=== PATIENT | female | born 1945 ===

== ENCOUNTER 2022-06-04 08:11 | Inpatient (IN) | payer OTHER, MEDICAID, SELFPAY ==
[2022-06-04] VITALS (32 sets, daily range): BP systolic 121–158; BP diastolic 74–99; PULSE 60–106; RESP 16–30; TEMP 36.5–37.1; O2SAT 88–99
--- NOTE | ~2022-06-04 | XR_ITS ---
EXAMINATION: XR chest 2V DATE: 06/04/2022 10:13 INDICATION: Transient alteration of awareness TECHNIQUE: AP and lateral views of the chest are obtained. COMPARISON: None available FINDINGS: The lungs are free of acute opacities. No pleural effusion or pneumothorax. The cardiomedia stinal silhouette is normal. There is moderate thoracic spondylosis. Cranial migration of the left hu meral head with respect to the glenoid likely reflects chronic rotator cuff tear. IMPRESSION: 1. No acute cardiopulmonary abnormality. Reviewed, dictated and finalized at location A.
--- NOTE | ~2022-06-04 | CT_ITS ---
EXAMINATION: CT brain wo con INDICATION: Headache COMPARISON: None TECHNIQUE: Standard unenhanced head CT. The dose-length product (DLP) was 983.67 mGy-cm. The mA was a djusted according to patient size. Iterative reconstruction technique was employed. FINDINGS: There is no acute intraparenchymal hemorrhage. No evidence of mass lesion. No evidence of a cute infarction. There is mild periventricular and subcortical hypodensity probably related to small vessel ischemic disease. There is mild prominence of the sulci and ventricles related to cerebral atr ophy. Intracranial calcified cerebral atherosclerosis is noted. There are no extra-axial collections. There is no mass effect or midline shift. Changes in the globes are likely from ocular lens surgery. The visualized sinuses and mastoid air cells are well aerated. IMPRESSION: 1. No acute intracranial abnormality. 2. Age related findings. Reviewed, dictated and finalized at location A.
[2022-06-04] MEDS: SODIUM CHLORIDE 0.9% IV 1,000 ML 999 ML IV CONT (09:14)
[2022-06-04 09:26] LABS: Basophils Percent Auto 0.5 % (0.2-1.2); Eosinophils Absolute Auto 0.1 K/mm3 (0-0.3); Eosinophils Percent Auto 1.6 % (0-4.4); Hematocrit 33.5 % (37.0-47.0); Hemoglobin 11.2 g/dL (12.0-15.0); Immature Granulocyte Absolute 0.05 K/mm3 (0.00-0.031); Immature Granulocyte Percent A 0.6 % (0-0.5); Lymphocytes Absolute Auto 1.13 K/mm3 (0.9-3.2); Lymphocytes Percent Auto 13.1 % (18.3-44.2); Mean Corpuscular HGB Conc 33.4 g/dl (32-36); Mean Corpuscular Hemoglobin 26.6 pg (26-34); Mean Corpuscular Volume 79.6 fl (80-100); Mean Platelet Volume 9.2 fl (7.4-10.4); Monocytes Absolute Auto 0.7 K/mm3 (0.1-0.6); Monocytes Percent Auto 8.6 % (2.6-8.5); Neutrophils Absolute Auto 6.5 K/mm3 (1.3-6.7); Neutrophils Percent Auto 75.6 % (45.5-73.1); Platelet Count Result 287 k/mm3 (150-375); Red Blood Count 4.21 M/mm3 (4.2-5.4); Red Cell Distribution Width 13.3 % (11.5-14.5); White Blood Count 8.6 K/mm3 (4.5-10.0)
--- NOTE | 2022-06-04 09:37 | ED.GENADULT ---
HPI - General Adult General Chief complaint: Altered Mental Status Stated complaint: AMS History of Present Illness HPI narrative: Patient is a 76-year-old female who presents ER with altered mental status. Patient is typically alert and oriented x4 but she has been oriented x1 for the last 18 hours. Patient is unable to provide history no additional information was given by snf. Related Data Allergies Allergy/AdvReac Type Severity Reaction Status Date / Time penicillin V Allergy Unknown Unknown Verified 06/04/22 15:06 Review of Systems Review of Systems: ROS unobtainable: Yes unobtainable due to medical condition [facility] Past Medical History Medical History (Updated 06/04/22 @ 17:03 by Duane Ortega MD) Anxiety Atherosclerosis of aorta Barretts esophagus CKD (chronic kidney disease) Depression GERD (gastroesophageal reflux disease) Hyperlipidemia Hypo-osmolality and hyponatremia Migraines Pre-diabetes Surgical History Surgical History History of esophagogastroduodenoscopy (EGD) Family History Family History Other Diabetes mellitus Family history of arthritis Family history of cardiovascular disease Hypertension Social History Social History (Updated 06/04/22 @ 14:51 by Katerine Wallace PA-C) Social History: Lives at [facility] Nursing Code: DNR POA: Charlie (brother), Chandrika (sister) PCP: Dr. Radha Guaman Smoking status: Former smoker Additional smoking assessment comments: Unknown amount or duration of smoking, quit 40-50 years ago Substance use: never Substance use type: does not use Spiritual care concerns: No Exam Narrative: GENERAL: Chronically ill-appearing, well-nourished, and in no acute distress. HEAD: Normocephalic, atraumatic. EYES: PERRL and EOMI. ENT: Mucous membranes moist. CHEST: Clear to auscultation. No respiratory distress. HEART: Regular rate and rhythm. Normal peripheral pulses. ABDOMEN: Soft, nontender, nondistended. EXTREMITIES: Normal range of motion. No edema. SKIN: Warm, dry, no rash. NEURO: Alert and oriented x1. PSYCH: Normal mood and affect. Course Course Emergency Course: Family at bedside. Informed of results. Pt recently admitted in [place] for Na of 127. The thought it was an issue with gabapentin. MRI of brain there negative. Will admit to hospitalist. Vital Signs Vital signs: Vital Signs Temperature 97.8 F 06/04/22 08:05 Pulse Rate 80 06/04/22 08:05 Respiratory Rate 16 06/04/22 08:05 Blood Pressure 127/98 H 06/04/22 08:05 Pulse Oximetry 97 06/04/22 08:05 Oxygen Delivery Room Air 06/04/22 08:05 Temperature 98.1 F 06/04/22 14:00 Pulse Rate 104 H 06/04/22 14:00 Respiratory Rate 18 06/04/22 14:00 Blood Pressure 158/92 H 06/04/22 14:00 Pulse Oximetry 98 06/04/22 14:00 Oxygen Delivery Room Air 06/04/22 08:05 Medical Decision Making Vital Signs Vital Signs: Vital Signs Temperature 97.8 F 06/04/22 08:05 Pulse Rate 80 06/04/22 08:05 Respiratory Rate 16 06/04/22 08:05 Blood Pressure 127/98 H 06/04/22 08:05 Pulse Oximetry 97 06/04/22 08:05 Oxygen Delivery Room Air 06/04/22 08:05 Temperature 98.1 F 06/04/22 14:00 Pulse Rate 104 H 06/04/22 14:00 Respiratory Rate 18 06/04/22 14:00 Blood Pressure 158/92 H 06/04/22 14:00 Pulse Oximetry 98 06/04/22 14:00 Oxygen Delivery Room Air 06/04/22 08:05 Lab Data Result diagrams: 06/04/22 09:06/04/22 12:52 Labs: Lab Results 06/04/22 06/04/22 06/04/22 Range/Units 09:22 09:22 09:22 WBC 8.6 (4.5-10.0) K/mm3 RBC 4.21 (4.2-5.4) M/mm3 Hgb 11.2 L (12.0-15.0) g/dL Hct 33.5 L (37.0-47.0) % MCV 79.6 L (80-100) fl MCH 26.6 (26-34) pg MCHC 33.4 (32-36) g/dl RDW 13.3 (11.5-14.5) % Plt Count 287 (150-3
[2022-06-04 09:39] LABS: Lactic Acid Reflex 1.1 mmol/L (0.7-2.0)
[2022-06-04 09:44] LABS: Alanine Aminotransferase 34 U/L (6-35); Albumin Level 3.5 g/dL (3.5-5.1); Alkaline Phosphatase 205 U/L (38-126); Anion Gap 6 mmol/L (8-16); Aspartate Amino Transferase 30 U/L (14-36); Bilirubin,Total 0.9 mg/dL (0.2-1.3); Blood Urea Nitrogen 8 mg/dL (7-17); Calcium 8.6 mg/dL (8.4-10.2); Carbon Dioxide 29 mmol/L (22-30); Chloride 81 mmol/L (98-107); Estimated CRCL calculation 80 ml/min; Estimated Glomerular Filt Rate > 60; Glucose 150 mg/dL (65-110); Potassium 4.4 mmol/L (3.4-5.0); Sodium 116 mmol/L (137-145)
[2022-06-04 10:19] LABS: Appearance Urine Cloudy (Clear); Bilirubin Urine Negative (Negative); Blood Urine Negative (Negative); Color Urine Yellow (Yellow); Glucose Urine UA Negative (Negative); Ketones Urine 1+ mg/dL (Negative); Leukocyte Esterase Ur 1+ LEU/UL (Negative); Nitrate Urine Negative (Negative); Protein Urine Negative (Negative)
[2022-06-04 10:26] LABS: Bacteria Urine Trace /hpf; Mucus Urine Rare /lpf; RBC Urine 0-2 /hpf (0-2); Squamous Epithelial Cell Urine Rare /hpf (Few); WBC Urine 31-50 /hpf
[2022-06-04 10:28] LABS: Add Urine Microscopic? YES
--- NOTE | 2022-06-04 11:45 | PC.NURSE ---
1100 Assumed pt care from MEETA Quintero
[2022-06-04] MEDS: LORazepam INJ (*CRX) 2 MG/ML VIAL 1 MG IV PUSH (11:53)
--- NOTE | 2022-06-04 13:25 | ADMGEN ---
This patient, Bere Roman, was admitted to Medical Room 348-01. Patient/family oriented to hospital policies and general routines including ID bracelet, bed and alarms, visiting hours, pain management, procedures, bathroom and other care routines, personal items, smoking policy, room service/diet, and visiting hours. Information on how to activate the Rapid Response Team has been discussed. Patient/Family are encouraged to report perceived risks to care and to ask questions if they do not understand what they are told or what they should do.
[2022-06-04 13:30] LABS: Anion Gap 10 mmol/L (8-16); Blood Urea Nitrogen 8 mg/dL (7-17); Calcium 8.5 mg/dL (8.4-10.2); Carbon Dioxide 26 mmol/L (22-30); Chloride 80 mmol/L (98-107); Estimated CRCL calculation 98 ml/min; Estimated Glomerular Filt Rate > 60; Glucose 143 mg/dL (65-110); Potassium 4.1 mmol/L (3.4-5.0); Sodium 116 mmol/L (137-145)
--- NOTE | 2022-06-04 14:28 | PM.IMHP ---
H&P: HPI History of Present Illness Date/Time: 06/04/22 14:28 Chief Complaint: Altered mental status Narrative: Date of service: 06/04/2022 Bere Roman is a 76-year-old female with a history of depression, CKD, hyperlipidemia, prediabetes, aortic atherosclerosis, left bundle-branch block, migraines, and hyponatremia who presented to the emergency department from [facility] on 06/04/2022 with concerns of altered mental status. The patient's sister and [id number] are present in the room and provides history as the patient is not able to answer any questions and provide any history herself. Her family never states that she has been having issues since April 10 2022. She passed out at a 10 of April green party and was evaluated at an outside hospital, started on anti seizure medications. She was readmitted shortly after for hyponatremia (sodium reportedly 120 at that time). She then had issues with weakness and was not able to ambulate independently. Family was told that she had cerebral edema and she had been having issues with hallucinations. She completed rehab but still was not able to live independently, therefore she has recently transitioned to nursing care [facility]. Family notes that over the past week she has been progressively worsening. She would not participate in conversations. She was not eating very well. Family has been told by the patient's roommate that she has fallen 4 times in the past week. The roommate reported that she hit her head twice but the family reports they were not notified of any incident or injury by nursing staff. Two days ago they were more concerned for her mental status changes and requested a urinalysis be completed. Ultimately, [facility]dc decided to send patient for emergency evaluation due to mental status changes. On presentation to the ED, vital signs were stable, sodium was 116, urinalysis concerning for UTI, head CT showed no acute findings, and CXR showed no acute findings. She is being admitted to the hospitalist service for observation. Supervising physician for this history and physical is Dr. Tex Boyd. Review of Systems Review of Systems: ROS unobtainable: Yes unobtainable due to mental status PMFSH Past Medical History Medical History (Updated 06/04/22 @ 15:06 by Katerien Wallace PA-C) Anxiety Atherosclerosis of aorta Barretts esophagus CKD (chronic kidney disease) Depression GERD (gastroesophageal reflux disease) Hyperlipidemia Hypo-osmolality and hyponatremia Migraines Pre-diabetes Surgical History Surgical History History of esophagogastroduodenoscopy (EGD) Family History Family History Other Diabetes mellitus Family history of arthritis Family history of cardiovascular disease Hypertension Social History Social History (Updated 06/04/22 @ 14:51 by Katerine Wallace PA-C) Social History: Lives at [facility] Code: DNR POA: Charlie (brother), Chandrika (sister) PCP: Dr. Radha Guaman Smoking status: Former smoker Additional smoking assessment comments: Unknown amount or duration of smoking, quit 40-50 years ago Substance use: never Substance use type: does not use Spiritual care concerns: No Meds Home Medications and Allergies Allergies Allergy/AdvReac Type Severity Reaction Status Date / Time penicillin V Allergy Unknown Unknown Verified 06/04/22 15:06 Vital Signs Vital Signs - 24 hr 06/04/22 08:05 06/04/22 08:16 06/04/22 08:17 Temperature 97.8 F Pulse Rate 80 80 Respiratory Rate 16 16 Blood Pressure 127/98 H Pulse Oximetry 97 98 Oxygen Delivery Room Air 06/04/22 10:46 06/04/22 08:16 06/04/22 08:30 Temperature Pulse Rate 96 75 73 Respiratory Rate 20 16 19 Blood Pressure 151/90 H Pulse Oximetry 99 Oxygen Delivery 06/04/22 08:45 06/04/22
--- NOTE | 2022-06-04 14:39 | PM.CNNEP ---
Assessment and Plan Assessment and plan (1) Acute hyponatremia: Code(s): E87.1 - Hypo-osmolality and hyponatremia Status: Acute Assessment and Plan: sodium 116mmol/L on presentation apparently quite acute as noted by family sodium 133mmol/L on 06/02/22 sodium 136 in April 2022 no improvement despite normal saline IVFs given presentation with altered mental status and hallucination. 3% saline ordered goal of therapy would a rate of change of 4 - 6mmol/L in 24 hours but not to exceed 8mmol/L follow trend of repeat sodium levels etiology not clear possibly medication induced since was on lexapro recently however, history of brain/neurological issues ( cerebral edema ) could be playing a role as well proceed with further testing - TSH, cortisol, SPEP, UPEP, urine electrolytes, serum/urine osmolality holding SSRI follow serial sodium levels (2) Altered mental status: Code(s): R41.82 - Altered mental status, unspecified Status: Acute Assessment and Plan: etiology not clear secondary to hyponatremia? due to UTI? follow-up on pending studies (TSH, B12, folate, ammonia...) monitor blood/urine cultures head CT negative normally A & O x 1 - 2, currently 0 follow trend of mentation with interventions to date (3) UTI (urinary tract infection): Code(s): N39.0 - Urinary tract infection, site not specified Status: Acute Assessment and Plan: UA suggestive on IV ceftriaxone follow urine culture results (4) Falls: Code(s): W19.XXXA - Unspecified fall, initial encounter Status: Acute Assessment and Plan: apparently this has been going on for the last week fall precautions initiated PT/OT evvaluation when more stable Greater that 20 minutes was spent in reviewing her paper chart and electronic medical records and discussed the case with Katerine Wallace PA-C regarding this patient. Will continue to follow. History of Present Illness Reason for Consult Consult date: 06/04/22 Reason for consult: hyponatremia Chief Complaint Chief complaint: Hyponatremia, UTI, Metabolic Encephalopathy History of Present Illness Narrative: Most of the information I have obtained is from review of the paper chart that accompanied the patient from her nursing facility, the electronic medical record, and discussion with the physicians/nurses involved in her care as the patient is unable to provide me with any meaningful history at the time of my visit. The patient is a 76-year-old female with extensive past medical history as outlined below who presented to [facility] Emergency room from her nursing facility due to altered mental status. According to family members, the patient has been having ongoing issues and problems with her neurological status since April 10, 2022. At that time, she apparently passed out and was subsequently seen at outside hospital and initiated on anti seizure medications on the presumption that she had a seizure. She apparently was then readmitted for hyponatremia (her sodium was apparently as low as 120 millimoles per L). I am unclear what workup and evaluation was done at that time but apparently her sodium level improved but she was found to have significant issues with weakness and difficulty ambulating. Imaging at that time of her brain demonstrated cerebral edema although I am unclear what actually precipitated this issue. In any case, she completed her rehab but was still unable to live independently and had to be transition to nursing care. Apparently, at her nursing facility, she has been having recurrent falls although this information was not told the family but rather her roommate told the patient's family. The curve in the last 48 hours, her family notes that her mental status has declined significantly from baseline. In the past, usually a urinary tract infection did this type of change in so the famil
--- NOTE | 2022-06-04 14:39 | P.CONNP_ITS ---
Assessment and Plan Assessment and plan (1) Acute hyponatremia: Code(s): E87.1 - Hypo-osmolality and hyponatremia Status: Acute Assessment and Plan: * sodium 116mmol/L on presentation * apparently quite acute as noted by family * sodium 133mmol/L on 06/02/22 * sodium 136 in April 2022 * no improvement despite normal saline IVFs * given presentation with altered mental status and hallucination. 3% saline ordered * goal of therapy would a rate of change of 4 - 6mmol/L in 24 hours but not to exceed 8mmol/L * follow trend of repeat sodium levels * etiology not clear * possibly medication induced since was on lexapro recently * however, history of brain/neurological issues ( cerebral edema ) could be playing a role as well * proceed with further testing - TSH, cortisol, SPEP, UPEP, urine electrolytes, serum/urine osmolality * holding SSRI * follow serial sodium levels (2) Altered mental status: Code(s): R41.82 - Altered mental status, unspecified Status: Acute Assessment and Plan: * etiology not clear * secondary to hyponatremia? * due to UTI? * follow-up on pending studies (TSH, B12, folate, ammonia...) * monitor blood/urine cultures * head CT negative * normally A & O x 1 - 2, currently 0 * follow trend of mentation with interventions to date (3) UTI (urinary tract infection): Code(s): N39.0 - Urinary tract infection, site not specified Status: Acute Assessment and Plan: * UA suggestive * on IV ceftriaxone * follow urine culture results (4) Falls: Code(s): W19.XXXA - Unspecified fall, initial encounter Status: Acute Assessment and Plan: * apparently this has been going on for the last week * fall precautions initiated * PT/OT evvaluation when more stable Greater that 20 minutes was spent in reviewing her paper chart and electronic medical records and discussed the case with Katerine Wallace PA-C regarding this patient. Will continue to follow. History of Present Illness Reason for Consult Consult date: 06/04/22 Reason for consult: hyponatremia Chief Complaint Chief complaint: Hyponatremia, UTI, Metabolic Encephalopathy History of Present Illness Narrative: Most of the information I have obtained is from review of the paper chart that accompanied the patient from her nursing facility, the electronic medical record, and discussion with the physicians/nurses involved in her care as the patient is unable to provide me with any meaningful history at the time of my visit. The patient is a 76-year-old female with extensive past medical history as outlined below who presented to [facility] Emergency room from her nursing facility due to altered mental status. According to family members, the patient has been having ongoing issues and problems with her neurological status since April 10, 2022. At that time, she apparently passed out and was subsequently seen at outside hospital and initiated on anti seizure medications on the presumption that she had a seizure. She apparently was then readmitted for hyponatremia (her sodium was apparently as low as 120 millimoles per L). I am unclear what workup and evaluation was done at that time but apparently her sodium level improved but she was found to have significant issues with weakness and difficulty ambulating. Imaging at that time of her brain demonstrated cerebral edema although I am unclear what actually precipitated this issue. In any case, she completed her rehab but was still unable to live independently a
[2022-06-04] MEDS: SODIUM CHLORIDE 3% 75 ML IV CONT (15:34)
[2022-06-04 15:50] LABS: Ammonia < 9 umol/L (9-30)
[2022-06-04 17:06] LABS: Folic Acid 14.2 ng/mL (2.76->20)
[2022-06-04 17:42] LABS: Sodium 114 mmol/L (137-145)
[2022-06-04 18:10] LABS: Creatinine Urine 12.4 mg/dL; Total Protein Urine Random 17 mg/dL; Ur Ttl Prot Creatinine Ratio 1.37 mg/mg (0-0.20)
[2022-06-04 18:12] LABS: Sodium Urine Random 185 meq/L
--- NOTE | 2022-06-04 18:56 | PC.NURSE ---
This patient, Bere Roman, was received from [ [id number]] on 06/04/22 at 1842 Patient/family oriented to unit policies and routines
[2022-06-04 21:44] LABS: Sodium 114 mmol/L (137-145)
[2022-06-04 21:52] LABS: SARS-CoV-2 RNA PCR Positive
[2022-06-04] MEDS: SODIUM CHLORIDE 3% 500 ML 80 ML IV CONT (22:49)
[2022-06-05] VITALS (14 sets, daily range): BP systolic 94–155; BP diastolic 55–94; PULSE 54–96; RESP 12–20; TEMP 36.2–36.7; O2SAT 95–100
[2022-06-05 03:39] LABS: Hematocrit 29.2 % (37.0-47.0); Mean Corpuscular HGB Conc 34.2 g/dl (32-36); Mean Corpuscular Hemoglobin 26.9 pg (26-34); Mean Corpuscular Volume 78.5 fl (80-100); Mean Platelet Volume 9.8 fl (7.4-10.4); Platelet Count Result 277 k/mm3 (150-375); Red Blood Count 3.72 M/mm3 (4.2-5.4); Red Cell Distribution Width 13.2 % (11.5-14.5)
[2022-06-05 04:20] LABS: Alanine Aminotransferase 26 U/L (6-35); Albumin Level 2.8 g/dL (3.5-5.1); Alkaline Phosphatase 157 U/L (38-126); Anion Gap 8 mmol/L (8-16); Aspartate Amino Transferase 27 U/L (14-36); Bilirubin,Total 0.7 mg/dL (0.2-1.3); Blood Urea Nitrogen 5 mg/dL (7-17); Calcium 7.9 mg/dL (8.4-10.2); Carbon Dioxide 24 mmol/L (22-30); Chloride 84 mmol/L (98-107); Estimated CRCL calculation 80 ml/min; Estimated Glomerular Filt Rate > 60; Glucose 120 mg/dL (65-110); Potassium 3.5 mmol/L (3.4-5.0); Sodium 116 mmol/L (137-145)
[2022-06-05 08:22] LABS: Sodium 114 mmol/L (137-145)
[2022-06-05] MEDS: SODIUM CHLORIDE 3% 85 ML IV CONT (09:09)
[2022-06-05] MEDS: TOLNAFTATE 1% POWDER 45 GM BTL 1 APPLIC TOPICAL ×2 (09:10→20:30)
--- NOTE | 2022-06-05 12:41 | PM.IMPN ---
Progress Note: A&P Assessment and Plan (1) Altered mental status: Code(s): R41.82 - Altered mental status, unspecified Status: Acute (2) Acute hyponatremia: Code(s): E87.1 - Hypo-osmolality and hyponatremia Status: Acute (3) UTI (urinary tract infection): Code(s): N39.0 - Urinary tract infection, site not specified Status: Acute (4) Falls: Code(s): W19.XXXA - Unspecified fall, initial encounter Status: Acute Plan ?76-year-old female with a history of depression, CKD, hyperlipidemia, prediabetes, aortic atherosclerosis, left bundle-branch block, migraines, and hyponatremia who presented to the emergency department from [facility] on 06/04/2022 with concerns of altered mental status, found to have severe hyponatremia 1)Acute encephalopathy: related to severe hyponatremia TSH, cortisol WNL Vitamin B12, folate WNL CT head unremarkable Obtain Neuro Consult 2)Acute Hyponatremia: Sodium 116 on presentation Per [id number], sodium was 133 two days prior on 06/02 Appreciate Neurology help Receiving 3% sodium chloride per Nephrology Monitor sodium levels closely Laboratory workup pending including protein electrophoresis SSRI held 3)UTI: c/w Ceftriaxone Urine cultures pending Await urine culture results and tailor antibiotics accordingly 4)Recurrent Fall Will evaluate once more awake Will need PT/OT. Await improvement in mental status 5)DVT ppx:hep SQ 6)Code:DNR 7)Dispo:pending improvement Time Spent With Patient Time with patient: 15 - 25 minutes Subjective Date/time seen: 06/05/22 12:41 Interval history: mental status remains unchanged Review of Systems Review of Systems: ROS unobtainable: Yes unobtainable due to mental status Exam Narrative: General: thin, acutely-ill appearing Neuro: not following commands HEENMT: normocephalic, atraumatic, EOMI, sclerae anicteric Respiratory: clear to auscultation anteriorly, nonlabored breathing Cardio: regular rate, regular rhythm with S1-S2 Abdomen: nondistended, normoactive bowel sounds, soft Extremities: 2+ pitting edema, no erythema, DP pulses palpable Skin: no rashes or lesions, warm and dry Objective Data Vital Signs Vital Signs: Vital Signs - 24 hr 06/04/22 12:45 06/04/22 14:00 06/04/22 19:08 Temperature 97.7 F 98.1 F Pulse Rate 101 H 104 H 106 H Respiratory Rate 28 H 18 Blood Pressure 158/92 H Pulse Oximetry 98 Oxygen Delivery 06/04/22 18:55 06/04/22 19:49 06/04/22 20:00 Temperature 98.8 F Pulse Rate 60 106 H 105 H Respiratory Rate 18 18 Blood Pressure 142/77 H Pulse Oximetry 93 93 Oxygen Delivery Room Air 06/04/22 20:00 06/04/22 22:00 06/04/22 23:00 Temperature 97.9 F Pulse Rate 105 H 96 101 H Respiratory Rate 20 Blood Pressure 121/74 Pulse Oximetry 97 Oxygen Delivery 06/04/22 23:06 06/04/22 23:06 06/05/22 02:00 Temperature Pulse Rate 96 96 87 Respiratory Rate 20 Blood Pressure Pulse Oximetry 97 Oxygen Delivery Room Air 06/05/22 04:00 06/05/22 04:00 06/05/22 04:00 Temperature 97.9 F Pulse Rate 86 86 82 Respiratory Rate 20 20 Blood Pressure 94/55 L Pulse Oximetry 97 97 Oxygen Delivery Room Air 06/05/22 05:31 06/05/22 07:52 06/05/22 08:00 Temperature 97.2 F L Pulse Rate 75 79 79 Respiratory Rate 20 20 Blood Pressure 135/94 H Pulse Oximetry 99 99 Oxygen Delivery Room Air 06/05/22 08:00 06/05/22 08:00 06/05/22 10:00 Temperature Pulse Rate 68 60 Respiratory Rate Blood Pressure Pulse Oximetry 99 Oxygen Delivery Room Air 06/05/22 12:00 Temperature 97.1 F L Pulse Rate 75 Respiratory Rate 16 Blood Pressure 123/89 Pulse Oximetry 98 Oxygen Delivery Intake/Output Intake/Output: Intake & Output 06/02/22 06/03/22 06/04/22 06/05/22 23:59 23:59 23:59 23:59 Intake Total 1433 240 Output Total 850 Balance 1433 -610 M
--- NOTE | 2022-06-05 13:26 | P.PNNP_ITS ---
Progress Note: A&P Assessment and Plan (1) Acute hyponatremia: Code(s): E87.1 - Hypo-osmolality and hyponatremia Status: Acute Assessment and Plan: * sodium 116mmol/L on presentation * apparently quite acute as noted by family * sodium 133 on 06/02/22 * sodium 136 in April 2022 * no improvement despite normal saline IVFs * given presentation with altered mental status and hallucination. 3% saline given * however, somewhat resistant to this intervention * getting another round of 3% at this time * goal of therapy would a rate of change of 4 - 6mmol/L in 24 hours but not to exceed 8mmol/L * follow trend of repeat sodium levels * etiology not clear * possibly medication induced since was on lexapro recently * however, history of brain/neurological issues ( cerebral edema ) could be playing a role as well * evaluation to date: * TSH and cortisol okay * CT of head negative * urine electrolytes are nonprerenal * SPEP/UPEP and serum/urine osmolality pending * holding SSRI * follow serial sodium levels (2) Altered mental status: Code(s): R41.82 - Altered mental status, unspecified Status: Acute Assessment and Plan: * etiology not clear * secondary to hyponatremia? * due to UTI? * no improvement noted * monitor blood/urine cultures * head CT negative * normally A & O x 1 - 2, currently 0 * follow trend of mentation with interventions to date (3) UTI (urinary tract infection): Code(s): N39.0 - Urinary tract infection, site not specified Status: Acute Assessment and Plan: * UA suggestive * on IV ceftriaxone * follow urine culture results (4) Falls: Code(s): W19.XXXA - Unspecified fall, initial encounter Status: Acute Assessment and Plan: * apparently this has been going on for the last week * fall precautions initiated * PT/OT evvaluation when more stable Will continue to follow. Subjective Date/time seen: 06/05/22 13:26 Despite multiple rounds of 3% saline given in the last 24 hours, no significant change in sodium level; furthermore, mental status appears unchanged since admission; unable to assess patient due to continued altered mental status. Exam Narrative: General: ill appearing female; confused Heart: normal S1 and S2; no rub Lungs: clear to auscultation Abdomen: soft, nontender, nondistended, positive bowel sounds Extremities: no cyanosis or clubbing; 2+ edema Skin: warm and dry Objective Data Vital Signs Vital Signs: Vital Signs Temp Pulse Resp BP Pulse Ox O2 Del Method 06/05/22 12:00 36.2 C L 75 16 123/89 98 06/05/22 10:00 60 06/05/22 08:00 68 06/05/22 08:00 99 Room Air 06/05/22 08:00 79 20 99 Room Air 06/05/22 07:52 36.2 C L 79 20 135/94 H 99 06/05/22 05:31 75 06/05/22 04:00 36.6 C 82 20 94/55 L 97 06/05/22 04:00 86 20 97 Room Air 06/05/22 04:00 86 06/05/22 02:00 87 06/04/22 23:06 96 20 97 Room Air 06/04/22 23:06 96 06/04/22 23:00 36.6 C 101 H 20 121/74 97 06/04/22 22:00 96 06/04/22 20:00 105 H 06/04/22 20:00 105 H 18 93 Room Air 06/04/22 19:49 106 H 06/04/22 18:55 37.1 C 60 1
--- NOTE | 2022-06-05 13:26 | PM.PNNEP ---
Progress Note: A&P Assessment and Plan (1) Acute hyponatremia: Code(s): E87.1 - Hypo-osmolality and hyponatremia Status: Acute Assessment and Plan: sodium 116mmol/L on presentation apparently quite acute as noted by family sodium 133 on 06/02/22 sodium 136 in April 2022 no improvement despite normal saline IVFs given presentation with altered mental status and hallucination. 3% saline given however, somewhat resistant to this intervention getting another round of 3% at this time goal of therapy would a rate of change of 4 - 6mmol/L in 24 hours but not to exceed 8mmol/L follow trend of repeat sodium levels etiology not clear possibly medication induced since was on lexapro recently however, history of brain/neurological issues ( cerebral edema ) could be playing a role as well evaluation to date: TSH and cortisol okay CT of head negative urine electrolytes are nonprerenal SPEP/UPEP and serum/urine osmolality pending holding SSRI follow serial sodium levels (2) Altered mental status: Code(s): R41.82 - Altered mental status, unspecified Status: Acute Assessment and Plan: etiology not clear secondary to hyponatremia? due to UTI? no improvement noted monitor blood/urine cultures head CT negative normally A & O x 1 - 2, currently 0 follow trend of mentation with interventions to date (3) UTI (urinary tract infection): Code(s): N39.0 - Urinary tract infection, site not specified Status: Acute Assessment and Plan: UA suggestive on IV ceftriaxone follow urine culture results (4) Falls: Code(s): W19.XXXA - Unspecified fall, initial encounter Status: Acute Assessment and Plan: apparently this has been going on for the last week fall precautions initiated PT/OT evvaluation when more stable Will continue to follow. Subjective Date/time seen: 06/05/22 13:26 Despite multiple rounds of 3% saline given in the last 24 hours, no significant change in sodium level; furthermore, mental status appears unchanged since admission; unable to assess patient due to continued altered mental status. Exam Narrative: General: ill appearing female; confused Heart: normal S1 and S2; no rub Lungs: clear to auscultation Abdomen: soft, nontender, nondistended, positive bowel sounds Extremities: no cyanosis or clubbing; 2+ edema Skin: warm and dry Objective Data Vital Signs Vital Signs: Vital Signs Temp Pulse Resp BP Pulse Ox O2 Del Method 06/05/22 12:00 36.2 C L 75 16 123/89 98 06/05/22 10:00 60 06/05/22 08:00 68 06/05/22 08:00 99 Room Air 06/05/22 08:00 79 20 99 Room Air 06/05/22 07:52 36.2 C L 79 20 135/94 H 99 06/05/22 05:31 75 06/05/22 04:00 36.6 C 82 20 94/55 L 97 06/05/22 04:00 86 20 97 Room Air 06/05/22 04:00 86 06/05/22 02:00 87 06/04/22 23:06 96 20 97 Room Air 06/04/22 23:06 96 06/04/22 23:00 36.6 C 101 H 20 121/74 97 06/04/22 22:00 96 06/04/22 20:00 105 H 06/04/22 20:00 105 H 18 93 Room Air 06/04/22 19:49 106 H 06/04/22 18:55 37.1 C 60 18 142/77 H 93 06/04/22 19:08 106 H 06/04/22 14:00 36.7 C 104 H 18 158/92 H 98 Intake/Output Intake/Output: Intake & Output 06/02/22 06/03/22 06/04/22 06/05/22 23:59 23:59 23:59 23:59 Intake Total 1433 240 Output Total 850 Balance 1433 -610 Meds/Results Medications: Active Medications Generic Name Dose Route Start Last Admin Trade Name Alannah PRN Reason Stop Dose Admin Acetaminophen 650 mg 06/04/22 12:01 Acetaminophen 325 Mg Tablet PO Q4H PRN Mild Pain (1-3) or Fever Hydrocodone Bitart/Acetaminophen 1 tab 06/04/22 12:01 Hydrocodone/Acetaminophen (*Crx) 5-325 Mg Tablet PO Q4H PRN Pain Rated 4-6 Heparin Sodium (Porcine) 5,000 units 06/05/22
--- NOTE | 2022-06-05 15:06 | WPDNEURCNPN ---
Assessment and Plan Assessment and plan (1) Altered mental status: Code(s): R41.82 - Altered mental status, unspecified Status: Acute Plan Bere Roman is a 76 year old female with a history of depression, CKD, HLD, prediabetes, LBBB, migraines who presents with altered mental status. Etiology is likely multifactorial (hyponatremia, UTI, COVID infection). - If mental status does not improve with treatment of hyponatremia and UTI, will obtain MRI brain +/- routine EEG Consult date: 06/05/22 Time Seen: 15:06 Reason for consult: Altered Mental Status HPI: Bere Roman is a 76 year old female with a history of depression, CKD, HLD, prediabetes, LBBB, migraines who presents with altered mental status. No family was available during my assessment so history was obtained mostly from chart review. Patient presented from [facility] yesterday. She has reportedly beein having issues since April 2022. She had a syncopal episode at that time. She was admitted later due to hyponatremia. She was having weakness and due to her not being able to ambulate independently. Per chart review, family believes that her mental status has been worsening over the past week. She has multiple falls. Patient was sent to [place] [facility] due to mental status change. CT head was normal. She has a UA that was concerning for UTI. Her sodium on admission was 116. She is also COVID positive. TSH, B12, and folate all within normal range. Her home medications are documented as Lipitor, Lexapro, and Omeprazole. Today her sodium was 114. She had a normal WBC and no fever. She is currently being treated with Rocephin for her UTI and hypertonic saline for her hyponatremia. Nephrology is also following. Review of Systems Review of Systems: ROS unobtainable: Yes unobtainable due to mental status PMFSH Past Medical History Medical History Anxiety Atherosclerosis of aorta Barretts esophagus CKD (chronic kidney disease) Depression GERD (gastroesophageal reflux disease) Hyperlipidemia Hypo-osmolality and hyponatremia Migraines Pre-diabetes Surgical History Surgical History History of esophagogastroduodenoscopy (EGD) Family History Family History Other Diabetes mellitus Family history of arthritis Family history of cardiovascular disease Hypertension Social History Social History Social History: Lives at [facility] Code: DNR POA: Charlie (brother), Chandrika (sister) PCP: Dr. Radha Guaman Smoking status: Former smoker Additional smoking assessment comments: Unknown amount or duration of smoking, quit 40-50 years ago Substance use: never Substance use type: does not use Spiritual care concerns: No Meds Home Medications and Allergies Home Medications Medication Instructions Recorded Confirmed Type atorvastatin 10 mg tablet (Lipitor) 10 mg PO HS 06/04/22 06/04/22 History escitalopram oxalate 10 mg tablet 10 mg PO DAILY 06/04/22 06/04/22 History omeprazole 40 mg capsule,delayed 40 mg PO DAILY 06/04/22 06/04/22 History release Allergies Allergy/AdvReac Type Severity Reaction Status Date / Time penicillin V Allergy Unknown Unknown Verified 06/04/22 15:06 Vital Signs Vital Signs - 24 hr 06/04/22 19:08 06/04/22 18:55 06/04/22 19:49 Temperature 37.1 C Pulse Rate 106 H 60 106 H Respiratory Rate 18 Blood Pressure 142/77 H Pulse Oximetry 93 Oxygen Delivery 06/04/22 20:00 06/04/22 20:00 06/04/22 22:00 Temperature Pulse Rate 105 H 105 H 96 Respiratory Rate 18 Blood Pressure Pulse Oximetry 93 Oxygen Delivery Room Air 06/04/22 23:00 06/04/22 23:06 06/04/22 23:06 Temperature 36.6 C Pulse Rate 101 H 96 96 Respiratory Rate 20 20 Blood Pressure 121
[2022-06-05 15:13] LABS: Sodium 115 mmol/L (137-145)
[2022-06-05 17:55] LABS: Sodium 120 mmol/L (137-145)
[2022-06-05] MEDS: HEPARIN SODIUM 5,000 UNITS/ML VIAL 5000 UNITS SUB-Q (20:30)
[2022-06-05 21:37] LABS: Sodium 121 mmol/L (137-145)
[2022-06-06] VITALS (11 sets, daily range): BP systolic 118–155; BP diastolic 67–88; PULSE 60–105; RESP 12–20; TEMP 36.2–36.8; O2SAT 94–99
[2022-06-06 01:30] LABS: Sodium 115 mmol/L (137-145)
[2022-06-06 04:47] LABS: Basophils Percent Auto 0.5 % (0.2-1.2); Eosinophils Absolute Auto 0.2 K/mm3 (0-0.3); Eosinophils Percent Auto 1.8 % (0-4.4); Hematocrit 30.7 % (37.0-47.0); Hemoglobin 10.3 g/dL (12.0-15.0); Immature Granulocyte Absolute 0.06 K/mm3 (0.00-0.031); Immature Granulocyte Percent A 0.7 % (0-0.5); Lymphocytes Absolute Auto 0.99 K/mm3 (0.9-3.2); Lymphocytes Percent Auto 12.1 % (18.3-44.2); Mean Corpuscular HGB Conc 33.6 g/dl (32-36); Mean Corpuscular Hemoglobin 26.9 pg (26-34); Mean Corpuscular Volume 80.2 fl (80-100); Mean Platelet Volume 9.4 fl (7.4-10.4); Monocytes Absolute Auto 0.9 K/mm3 (0.1-0.6); Monocytes Percent Auto 11.3 % (2.6-8.5); Neutrophils Percent Auto 73.6 % (45.5-73.1); Platelet Count Result 294 k/mm3 (150-375); Red Blood Count 3.83 M/mm3 (4.2-5.4); Red Cell Distribution Width 13.6 % (11.5-14.5); White Blood Count 8.2 K/mm3 (4.5-10.0)
[2022-06-06 05:05] LABS: Alanine Aminotransferase 25 U/L (6-35); Albumin Level 2.9 g/dL (3.5-5.1); Alkaline Phosphatase 147 U/L (38-126); Anion Gap 11 mmol/L (8-16); Aspartate Amino Transferase 33 U/L (14-36); Bilirubin,Total 0.7 mg/dL (0.2-1.3); Blood Urea Nitrogen 6 mg/dL (7-17); Calcium 8.3 mg/dL (8.4-10.2); Carbon Dioxide 25 mmol/L (22-30); Chloride 86 mmol/L (98-107); Estimated CRCL calculation 98 ml/min; Estimated Glomerular Filt Rate > 60; Glucose 103 mg/dL (65-110); Magnesium 1.4 mg/dL (1.6-2.3); Potassium 3.4 mmol/L (3.4-5.0); Sodium 122 mmol/L (137-145)
[2022-06-06] MEDS: HYDROcodone/acetaminophen (*CRX) 5-325 MG TABLET 1 TAB PO (05:28)
[2022-06-06] MEDS: MAGNESIUM SULF 2 GM/WATER 50ML 2 GM/50 ML BAG IVPB (08:44)
[2022-06-06] MEDS: HEPARIN SODIUM 5,000 UNITS/ML VIAL 5000 UNITS SUB-Q ×2 (08:44→20:50)
[2022-06-06] MEDS: TOLNAFTATE 1% POWDER 45 GM BTL 1 APPLIC TOPICAL ×2 (08:44→20:49)
[2022-06-06 08:49] LABS: Sodium 119 mmol/L (137-145)
--- NOTE | 2022-06-06 08:53 | PC.NURSE ---
Notified Dr. Deleon of critical sodium result of 119. New order to recheck sodium at 1200 and call with result
--- NOTE | 2022-06-06 10:23 | PM.IMPN ---
Progress Note: A&P Assessment and Plan (1) Altered mental status: Code(s): R41.82 - Altered mental status, unspecified Status: Acute Assessment and Plan: Acute encephalopathy, Presumed secondary to hyponatremia and acute infection. TSH, cortisol WNL Vitamin B12, folate WNL CT head unremarkable Neuro consulted Improving. (2) Acute hyponatremia: Code(s): E87.1 - Hypo-osmolality and hyponatremia Status: Acute Assessment and Plan: Sodium 116 on presentation Per [id number], sodium was 133 two days prior on 06/02 Nephrology consulted and appreciate recommendations. Received 3% sodium chloride per Nephrology x3 Sodium continues to be fluxuant 119 to 123 to 118 today. Neuro exam improving. Laboratory workup pending including protein electrophoresis SSRI held (3) UTI (urinary tract infection): Code(s): N39.0 - Urinary tract infection, site not specified Status: Acute Assessment and Plan: IV ceftriaxone start on admission 06/04 Urine culture with klebsiella pnemoniae Change to cefdinir 300 mg PO BID x 5 days Blood cultures negative to date x2 (4) Falls: Code(s): W19.XXXA - Unspecified fall, initial encounter Status: Acute Assessment and Plan: PT/OT consulted. (5) Hypomagnesemia: Code(s): E83.42 - Hypomagnesemia Status: Acute Assessment and Plan: Magnesium level 1.4. give 2 grams Mag sulfate x1 IVPB. repeat mag level in am. Plan CODE STATUS: DNR Disposition: likely return to SNF Time Spent With Patient Time with patient: 15 - 25 minutes Subjective Date/time seen: 06/06/22 10:23 Interval history: Bere Roman is a 76 year old female with a history of depression, CKD, HLD, prediabetes, LBBB, migraines who presents with altered mental status. Per chart review, family believes that her mental status has been worsening over the past week. She has multiple falls. Patient found sleeping in bed. Arouses easily to voice. No complaints at this time. Nursing reports the patient was awake and talking this morning. She was able to eat breakfast and was answering most questions appropriately. Patient denies chest pain, SOB, abd pain, N/V/D, dysuria or flank pain. She c/o poor appetite. Review of Systems Review of Systems: All systems reviewed & are unremarkable except as noted in HPI and below Exam Narrative: General: well-developed, chronically ill appearing older adult female. No acute distress. Neuro: Sleeping, arouses to voice. Speech clear and appropriate. Oriented to person, hospital, year and president. CN 2-12 intact. No focal deficits. HEENMT: normocephalic, atraumatic, EOMI, sclerae anicteric Respiratory: clear to auscultation anteriorly, nonlabored breathing Cardio: regular rate, regular rhythm with S1-S2 Abdomen: nondistended, normoactive bowel sounds, soft. No CVA or suprapubic tenderness. Extremities: BLE trace edema, no erythema, DP pulses palpable +2 bilaterally. Skin: no rashes or lesions, warm and dry, Normal complexion for ethnicity. Objective Data Vital Signs Vital Signs: Vital Signs - 24 hr 06/05/22 12:00 06/05/22 12:00 06/05/22 14:00 Temperature 97.1 F L Pulse Rate 75 60 96 Respiratory Rate 16 Blood Pressure 123/89 Pulse Oximetry 98 Oxygen Delivery 06/05/22 12:00 06/05/22 16:00 06/05/22 16:00 Temperature 98.1 F Pulse Rate 96 81 59 L Respiratory Rate 16 12 Blood Pressure 132/60 Pulse Oximetry 100 Oxygen Delivery Room Air 06/05/22 16:00 06/05/22 18:00 06/05/22 20:00 Temperature 97.9 F Pulse Rate 81 69 55 L Respiratory Rate 12 20 Blood Pressure 155/66 H Pulse Oximetry 100 95 Oxygen Delivery Room Air 06/05/22 20:40 06/05/22 20:00 06/05/22 20:00 Temperature Pulse Rate 54 L 54 L Respiratory Rate 20 Blood Pressure Pulse Oximetry 99 99 Oxygen Delivery Room Air Room Air 06/05/22 23:18 06/05
--- NOTE | 2022-06-06 11:49 | PM.PNNEP ---
Progress Note: A&P Assessment and Plan (1) Acute hyponatremia: Code(s): E87.1 - Hypo-osmolality and hyponatremia Status: Acute Assessment and Plan: sodium 116mmol/L on presentation apparently quite acute as noted by family sodium 133 on 06/02/22 sodium 136 in April 2022 no improvement despite normal saline IVFs given presentation with altered mental status and hallucination - 3% saline given sodium has still fluctuating to extremes as noted above but overall better goal of therapy would a rate of change of 4 - 6mmol/L in 24 hours but not to exceed 8mmol/L (achieved) follow trend of repeat sodium levels etiology not clear possibly medication induced since was on lexapro recently however, history of brain/neurological issues ( cerebral edema ) could be playing a role as well evaluation to date: TSH and cortisol okay CT of head negative urine electrolytes are non-prerenal SPEP/UPEP and serum/urine osmolality pending holding SSRI likely start salt tabs depending on trend of sodium levels follow serial sodium levels (2) Altered mental status: Code(s): R41.82 - Altered mental status, unspecified Status: Acute Assessment and Plan: mentatiion has significantly improved etiology not clear secondary to hyponatremia? due to UTI? combination of both monitor blood/urine cultures head CT negative follow trend of mentation with interventions to date (3) UTI (urinary tract infection): Code(s): N39.0 - Urinary tract infection, site not specified Status: Acute Assessment and Plan: UA culture with Klebsiella on IV ceftriaxone (4) Falls: Code(s): W19.XXXA - Unspecified fall, initial encounter Status: Acute Assessment and Plan: apparently this has been going on for the last week fall precautions initiated PT/OT evaluation when more stable Will continue to follow. Subjective Date/time seen: 06/06/22 11:49 Mentation has significantly improved in the last 24 hours; sodium continues to fluctuate but overall doing better and has not required any further 3% saline in the last 24 hours as well; eating and drinking okay. Exam Narrative: General: ill appearing female - more talkative/alert Heart: normal S1 and S2; no rub Lungs: clear to auscultation Abdomen: soft, nontender, nondistended, positive bowel sounds Extremities: no cyanosis or clubbing; 2+ edema Skin: warm and dry Objective Data Vital Signs Vital Signs: Vital Signs Temp Pulse Resp BP Pulse Ox O2 Del Method 06/06/22 10:00 81 06/06/22 08:00 96 06/06/22 08:00 98 Room Air 06/06/22 07:38 36.8 C 100 12 141/74 H 98 06/06/22 06:00 85 06/06/22 04:00 77 20 97 Room Air 06/06/22 04:00 77 06/06/22 04:00 36.6 C 60 20 155/88 H 97 06/06/22 02:00 90 06/06/22 00:00 68 18 96 Room Air 06/06/22 00:00 68 06/05/22 22:00 62 06/05/22 23:18 36.4 C 64 18 140/63 96 06/05/22 20:00 54 L 20 99 Room Air 06/05/22 20:00 54 L 06/05/22 20:40 99 Room Air 06/05/22 20:00 36.6 C 55 L 20 155/66 H 95 06/05/22 18:00 69 06/05/22 16:00 81 12 100 Room Air 06/05/22 16:00 59 L 06/05/22 16:00 36.7 C 81 12 132/60 100 06/05/22 14:00 96 Intake/Output Intake/Output: Intake & Output 06/03/22 06/04/22 06/05/22 06/06/22 23:59 23:59 23:59 23:59 Intake Total 1433 630 150 Output Total 1700 1500 Balance 1433 -1070 -1350 Meds/Results Medications: Active Medications Generic Name Dose Route Start Last Admin Trade Name Freq PRN Reason Stop Dose Admin Acetaminophen 650 mg 06/04/22 12:01 Acetaminophen 325 Mg Tablet PO Q4H PRN Mild Pain (1-3) or Fever Hydrocodone Bitart/Acetaminophen 1 tab 06/04/22 12:01 06/06/22 05:28 Hydrocodone/Acetaminophen (*Crx) 5-325 Mg Tablet PO 1 tab Q4H PRN
--- NOTE | 2022-06-06 11:49 | P.PNNP_ITS ---
Progress Note: A&P Assessment and Plan (1) Acute hyponatremia: Code(s): E87.1 - Hypo-osmolality and hyponatremia Status: Acute Assessment and Plan: * sodium 116mmol/L on presentation * apparently quite acute as noted by family * sodium 133 on 06/02/22 * sodium 136 in April 2022 * no improvement despite normal saline IVFs * given presentation with altered mental status and hallucination - 3% saline given * sodium has still fluctuating to extremes as noted above but overall better * goal of therapy would a rate of change of 4 - 6mmol/L in 24 hours but not to exceed 8mmol/L (achieved) * follow trend of repeat sodium levels * etiology not clear * possibly medication induced since was on lexapro recently * however, history of brain/neurological issues ( cerebral edema ) could be playing a role as well * evaluation to date: * TSH and cortisol okay * CT of head negative * urine electrolytes are non-prerenal * SPEP/UPEP and serum/urine osmolality pending * holding SSRI * likely start salt tabs depending on trend of sodium levels * follow serial sodium levels (2) Altered mental status: Code(s): R41.82 - Altered mental status, unspecified Status: Acute Assessment and Plan: * mentatiion has significantly improved * etiology not clear * secondary to hyponatremia? * due to UTI? * combination of both * monitor blood/urine cultures * head CT negative * follow trend of mentation with interventions to date (3) UTI (urinary tract infection): Code(s): N39.0 - Urinary tract infection, site not specified Status: Acute Assessment and Plan: * UA culture with Klebsiella * on IV ceftriaxone (4) Falls: Code(s): W19.XXXA - Unspecified fall, initial encounter Status: Acute Assessment and Plan: * apparently this has been going on for the last week * fall precautions initiated * PT/OT evaluation when more stable Will continue to follow. Subjective Date/time seen: 06/06/22 11:49 Mentation has significantly improved in the last 24 hours; sodium continues to fluctuate but overall doing better and has not required any further 3% saline in the last 24 hours as well; eating and drinking okay. Exam Narrative: General: ill appearing female - more talkative/alert Heart: normal S1 and S2; no rub Lungs: clear to auscultation Abdomen: soft, nontender, nondistended, positive bowel sounds Extremities: no cyanosis or clubbing; 2+ edema Skin: warm and dry Objective Data Vital Signs Vital Signs: Vital Signs Temp Pulse Resp BP Pulse Ox O2 Del Method 06/06/22 10:00 81 06/06/22 08:00 96 06/06/22 08:00 98 Room Air 06/06/22 07:38 36.8 C 100 12 141/74 H 98 06/06/22 06:00 85 06/06/22 04:00 77 20 97 Room Air 06/06/22 04:00 77 06/06/22 04:00 36.6 C 60 20 155/88 H 97 06/06/22 02:00 90 06/06/22 00:00 68 18 96 Room Air 06/06/22 00:00 68 06/05/22 22:00 62 06/05/22 23:18 36.4 C 64 18 140/63 96 06/05/22 20:00 54 L 20 99 Room Air 06/05/22 20:00 54 L 06/05/22 20:40 99 Room Air 06/05/22 20:00 36.6 C 55 L 20 155/66 H 95 06/05/22 18:00 69 06/05/22 16:0
[2022-06-06] MEDS: CEFDINIR 300 MG CAPSULE PO ×2 (12:27→20:50)
--- NOTE | 2022-06-06 12:34 | WPDNEUROPN ---
Progress Note: A&P Assessment and Plan (1) Altered mental status: Code(s): R41.82 - Altered mental status, unspecified Status: Acute Plan Bere Roman is a 76 year old female with a history of depression, CKD, HLD, prediabetes, LBBB, migraines who presents with altered mental status. Etiology is likely multifactorial (hyponatremia, UTI, COVID infection). Patient appears to be clinically improving. - If concerns for decline in mental status, can obtain MRI brain +/- routine EEG Subjective Date/time seen: 06/06/22 12:34 Interval history: Bere Roman is a 76 year old female with a history of depression, CKD, HLD, prediabetes, LBBB, migraines who presents with altered mental status. No family was available during my assessment so history was obtained mostly from chart review. Patient presented from [facility] yesterday. She has reportedly beein having issues since April 2022. She had a syncopal episode at that time. She was admitted later due to hyponatremia. She was having weakness and due to her not being able to ambulate independently. Per chart review, family believes that her mental status has been worsening over the past week. She has multiple falls. Patient was sent to [place] ED due to mental status change. CT head was normal. She has a UA that was concerning for UTI. Her sodium on admission was 116. She is also COVID positive. TSH, B12, and folate all within normal range. Her home medications are documented as Lipitor, Lexapro, and Omeprazole. She had a normal WBC and no fever. She is currently being treated with Rocephin for her UTI and hypertonic saline for her hyponatremia. Nephrology is also following. Today her sodium was 122. She appears to be feeling much better. She did not have any major complaints this morning. Review of Systems Review of Systems: ROS unobtainable: Yes unobtainable due to mental status Exam Const: General: comfortable and no acute distress Other: much more awake today HENMT: Mouth: Yes moist mucous membranes Eyes: General: appearance normal, both eyes and all related structures Pupils: Equal, round and reactive pupils present EOM: EOMs intact bilaterally Neck: Neck: supple Other: normal range of motion Resp: Effort & Inspection: normal respiratory effort Cardio: Rate: regular rate Rhythm: regular rhythm Skin: General skin exam: normal color Neuro: Other: Alert and oriented to person, place, and year. She stayed awake during majority of the exam. Answered questions appropriately, laughed appropriately. Pupils equal and reactive bilaterally, EOMI, face appears symmetric, able to move all extremities antigravity and resistance equally. Sensation intact throughout. FNF intact. Comprehension and repetition is intact. She spoke in longer sentences today. Consistently followed commands. Extrem: General: normal to inspection Psych: Affect: No Hostile affect present Attitude: not belligerent Objective Data Vital Signs Vital Signs: Vital Signs - 24 hr 06/05/22 14:00 06/05/22 16:00 06/05/22 16:00 Temperature 36.7 C Pulse Rate 96 81 59 L Respiratory Rate 12 Blood Pressure 132/60 Pulse Oximetry 100 Oxygen Delivery 06/05/22 16:00 06/05/22 18:00 06/05/22 20:00 Temperature 36.6 C Pulse Rate 81 69 55 L Respiratory Rate 12 20 Blood Pressure 155/66 H Pulse Oximetry 100 95 Oxygen Delivery Room Air 06/05/22 20:40 06/05/22 20:00 06/05/22 20:00 Temperature Pulse Rate 54 L 54 L Respiratory Rate 20 Blood Pressure Pulse Oximetry 99 99 Oxygen Delivery Room Air Room Air 06/05/22 23:18 06/05/22 22:00 06/06/22 00:00 Temperature 36.4 C Pulse Rate 64 62 68 Respiratory Rate 18 Blood Pressure 140/63 Pulse Oximetry 96 Oxygen Delivery 06/06/22 00:00 06/06/22 02:00 06/06/22 04:00 Temperature 36.6 C Pulse Rate 68 90 60 Respiratory Rate 18 20 Blood Pressure 155/88 H Pulse Oximetry 96
[2022-06-06 12:48] LABS: Sodium 123 mmol/L (137-145)
[2022-06-06 16:45] LABS: Sodium 118 mmol/L (137-145)
[2022-06-06] MEDS: SODIUM CHLORIDE 1 GM TABLET PO (18:00)
--- NOTE | 2022-06-06 18:45 | PC.NURSE ---
This patient, Bere Roman, was transferred to [ [facility]] on 06/06/22 at 1845. Personal belongings sent with patient. Report given to [MEETA Guerra @ [id number] ]. Appropriate documentation sent with patient.
[2022-06-06 20:01] LABS: Sodium 121 mmol/L (137-145)
[2022-06-07] VITALS (10 sets, daily range): BP systolic 112–168; BP diastolic 66–75; PULSE 63–103; RESP 16–18; TEMP 36.4–36.7; O2SAT 99–100
[2022-06-07 00:58] LABS: Sodium 118 mmol/L (137-145)
[2022-06-07] MEDS: HYDROcodone/acetaminophen (*CRX) 5-325 MG TABLET 1 TAB PO ×3 (05:48→20:18)
[2022-06-07 05:54] LABS: Basophils Absolute Auto 0.1 K/mm3 (0.0-0.1); Basophils Percent Auto 0.8 % (0.2-1.2); Eosinophils Absolute Auto 0.2 K/mm3 (0-0.3); Eosinophils Percent Auto 2.7 % (0-4.4); Hematocrit 33.2 % (37.0-47.0); Hemoglobin 10.8 g/dL (12.0-15.0); Immature Granulocyte Absolute 0.04 K/mm3 (0.00-0.031); Immature Granulocyte Percent A 0.5 % (0-0.5); Lymphocytes Absolute Auto 1.21 K/mm3 (0.9-3.2); Lymphocytes Percent Auto 16.2 % (18.3-44.2); Mean Corpuscular HGB Conc 32.5 g/dl (32-36); Mean Corpuscular Hemoglobin 26.9 pg (26-34); Mean Corpuscular Volume 82.6 fl (80-100); Mean Platelet Volume 9.6 fl (7.4-10.4); Monocytes Absolute Auto 0.8 K/mm3 (0.1-0.6); Neutrophils Absolute Auto 5.2 K/mm3 (1.3-6.7); Neutrophils Percent Auto 69.8 % (45.5-73.1); Platelet Count Result 328 k/mm3 (150-375); Red Blood Count 4.02 M/mm3 (4.2-5.4); Red Cell Distribution Width 13.9 % (11.5-14.5); White Blood Count 7.5 K/mm3 (4.5-10.0)
[2022-06-07 06:03] LABS: Alanine Aminotransferase 24 U/L (6-35); Alkaline Phosphatase 140 U/L (38-126); Anion Gap 11 mmol/L (8-16); Aspartate Amino Transferase 27 U/L (14-36); Bilirubin,Total 0.6 mg/dL (0.2-1.3); Blood Urea Nitrogen 8 mg/dL (7-17); Calcium 8.6 mg/dL (8.4-10.2); Carbon Dioxide 24 mmol/L (22-30); Chloride 89 mmol/L (98-107); Estimated CRCL calculation 80 ml/min; Estimated Glomerular Filt Rate > 60; Glucose 107 mg/dL (65-110); Magnesium 1.9 mg/dL (1.6-2.3); Potassium 3.6 mmol/L (3.4-5.0); Sodium 124 mmol/L (137-145)
[2022-06-07] MEDS: SODIUM CHLORIDE 1 GM TABLET PO ×2 (09:11→16:58)
[2022-06-07] MEDS: CEFDINIR 300 MG CAPSULE PO ×2 (09:11→20:18)
[2022-06-07] MEDS: TOLNAFTATE 1% POWDER 45 GM BTL 1 APPLIC TOPICAL ×2 (09:12→20:19)
[2022-06-07] MEDS: HEPARIN SODIUM 5,000 UNITS/ML VIAL 5000 UNITS SUB-Q ×2 (09:12→20:18)
[2022-06-07 10:32] LABS: Sodium 123 mmol/L (137-145)
--- NOTE | 2022-06-07 12:28 | P.PNNP_ITS ---
Progress Note: A&P Assessment and Plan (1) Acute hyponatremia: Code(s): E87.1 - Hypo-osmolality and hyponatremia Status: Acute Assessment and Plan: * sodium 116mmol/L on presentation * apparently quite acute as noted by family * sodium 133 on 06/02/22 * sodium 136 in April 2022 * no improvement despite normal saline IVFs * given presentation with altered mental status and hallucination - 3% saline given * sodium has still fluctuating to extremes as noted above but overall better * goal of therapy would a rate of change of 4 - 6mmol/L in 24 hours but not to exceed 8mmol/L (achieved) * follow trend of repeat sodium levels * etiology not clear * possibly medication induced since was on lexapro recently * however, history of brain/neurological issues ( cerebral edema ) could be playing a role as well * evaluation to date: * TSH and cortisol okay * CT of head negative * urine electrolytes are non-prerenal * SPEP/UPEP and serum/urine osmolality pending * holding SSRI * now on salt tabs and low dose lasix * follow serial sodium levels (2) Altered mental status: Code(s): R41.82 - Altered mental status, unspecified Status: Acute Assessment and Plan: * mentatiion has significantly improved * etiology not clear * secondary to hyponatremia? * due to UTI? * combination of both * monitor blood/urine cultures * head CT negative * follow trend of mentation with interventions to date (3) UTI (urinary tract infection): Code(s): N39.0 - Urinary tract infection, site not specified Status: Acute Assessment and Plan: * UA culture with Klebsiella * on IV ceftriaxone (4) Falls: Code(s): W19.XXXA - Unspecified fall, initial encounter Status: Acute Assessment and Plan: * apparently this has been going on for the last week * fall precautions initiated * PT/OT evaluation Will continue to follow. Subjective Date/time seen: 06/07/22 12:28 Mentation appears stable if not better at this time; apparently eating/drinking reasonably well per nursing; no apparent distress or acute complaints to report; no issues/events overnight or earlier this AM; sodium continues to fluctuate but overall doing better; started on salt tabs and low dose lasix. Exam Narrative: General: ill appearing female in NAD Heart: normal S1 and S2; no rub Lungs: clear to auscultation Abdomen: soft, nontender, nondistended, positive bowel sounds Extremities: no cyanosis or clubbing; 2+ edema Skin: warm and intact Objective Data Vital Signs Vital Signs: Vital Signs Temp Pulse Resp BP Pulse Ox O2 Del Method 06/07/22 12:25 36.6 C 80 18 131/71 100 06/07/22 12:00 103 H 06/07/22 08:00 65 06/07/22 08:00 Room Air 06/07/22 10:29 Room Air 06/07/22 08:00 36.6 C 84 16 168/75 H 100 06/07/22 04:00 93 06/07/22 00:00 63 06/06/22 23:58 36.6 C 76 18 132/73 94 06/06/22 20:00 70 06/06/22 16:00 36.2 C L 105 H 16 118/67 99 06/06/22 16:00 100 Intake/Output Intake/Output: Intake & Output 06/04/22 06/05/22 06/06/22 06/07/22 23:59 23:59 23:59 23:59 Intake Total 1433 398 291 240
--- NOTE | 2022-06-07 12:28 | PM.PNNEP ---
Progress Note: A&P Assessment and Plan (1) Acute hyponatremia: Code(s): E87.1 - Hypo-osmolality and hyponatremia Status: Acute Assessment and Plan: sodium 116mmol/L on presentation apparently quite acute as noted by family sodium 133 on 06/02/22 sodium 136 in April 2022 no improvement despite normal saline IVFs given presentation with altered mental status and hallucination - 3% saline given sodium has still fluctuating to extremes as noted above but overall better goal of therapy would a rate of change of 4 - 6mmol/L in 24 hours but not to exceed 8mmol/L (achieved) follow trend of repeat sodium levels etiology not clear possibly medication induced since was on lexapro recently however, history of brain/neurological issues ( cerebral edema ) could be playing a role as well evaluation to date: TSH and cortisol okay CT of head negative urine electrolytes are non-prerenal SPEP/UPEP and serum/urine osmolality pending holding SSRI now on salt tabs and low dose lasix follow serial sodium levels (2) Altered mental status: Code(s): R41.82 - Altered mental status, unspecified Status: Acute Assessment and Plan: mentatiion has significantly improved etiology not clear secondary to hyponatremia? due to UTI? combination of both monitor blood/urine cultures head CT negative follow trend of mentation with interventions to date (3) UTI (urinary tract infection): Code(s): N39.0 - Urinary tract infection, site not specified Status: Acute Assessment and Plan: UA culture with Klebsiella on IV ceftriaxone (4) Falls: Code(s): W19.XXXA - Unspecified fall, initial encounter Status: Acute Assessment and Plan: apparently this has been going on for the last week fall precautions initiated PT/OT evaluation Will continue to follow. Subjective Date/time seen: 06/07/22 12:28 Mentation appears stable if not better at this time; apparently eating/drinking reasonably well per nursing; no apparent distress or acute complaints to report; no issues/events overnight or earlier this AM; sodium continues to fluctuate but overall doing better; started on salt tabs and low dose lasix. Exam Narrative: General: ill appearing female in NAD Heart: normal S1 and S2; no rub Lungs: clear to auscultation Abdomen: soft, nontender, nondistended, positive bowel sounds Extremities: no cyanosis or clubbing; 2+ edema Skin: warm and intact Objective Data Vital Signs Vital Signs: Vital Signs Temp Pulse Resp BP Pulse Ox O2 Del Method 06/07/22 12:25 36.6 C 80 18 131/71 100 06/07/22 12:00 103 H 06/07/22 08:00 65 06/07/22 08:00 Room Air 06/07/22 10:29 Room Air 06/07/22 08:00 36.6 C 84 16 168/75 H 100 06/07/22 04:00 93 06/07/22 00:00 63 06/06/22 23:58 36.6 C 76 18 132/73 94 06/06/22 20:00 70 06/06/22 16:00 36.2 C L 105 H 16 118/67 99 06/06/22 16:00 100 Intake/Output Intake/Output: Intake & Output 06/04/22 06/05/22 06/06/22 06/07/22 23:59 23:59 23:59 23:59 Intake Total 1433 630 680 240 Output Total 1700 2850 850 Balance 1433 -1070 -2170 -610 Meds/Results Medications: Active Medications Generic Name Dose Route Start Last Admin Trade Name Freq PRN Reason Stop Dose Admin Acetaminophen 650 mg 06/04/22 12:01 Acetaminophen 325 Mg Tablet PO Q4H PRN Mild Pain (1-3) or Fever Hydrocodone Bitart/Acetaminophen 1 tab 06/04/22 12:01 06/07/22 14:01 Hydrocodone/Acetaminophen (*Crx) 5-325 Mg Tablet PO 1 tab Q4H PRN Administration Pain Rated 4-6 Cefdinir 300 mg 06/06/22 10:25 06/07/22 09:11 Cefdinir 300 Mg Capsule PO 06/10/22 10:24 300 mg Q12HR ZHAO Administration Heparin Sodium (Porcine) 5,000 units 06/05/22 21:00 06/07/22 09:12 Heparin Sodium 5,000 Units/Ml Vial SUB-Q 5,000 un
--- NOTE | 2022-06-07 12:43 | PM.IMPN ---
Progress Note: A&P Assessment and Plan (1) Altered mental status: Code(s): R41.82 - Altered mental status, unspecified Status: Acute Assessment and Plan: Acute encephalopathy, Presumed secondary to hyponatremia and acute infection. TSH, cortisol WNL Vitamin B12, folate WNL CT head unremarkable Neuro consulted - likely secondary to acute infection and hyponatremia. Improving. (2) Acute hyponatremia: Code(s): E87.1 - Hypo-osmolality and hyponatremia Status: Acute Assessment and Plan: Sodium 116 on presentation Per [id number], sodium was 133 two days prior on 06/02 Nephrology consulted and appreciate recommendations. Received 3% sodium chloride per Nephrology x3 . Neuro exam improving. Laboratory workup pending including protein electrophoresis SSRI held Sodium chloride tablets BID started. Continue serial sodium monitoring sodium 118 to 124 to 123 to 116 today. (3) UTI (urinary tract infection): Code(s): N39.0 - Urinary tract infection, site not specified Status: Acute Assessment and Plan: IV ceftriaxone start on admission 06/04 Urine culture with klebsiella pnemoniae Change to cefdinir 300 mg PO BID x 5 days (day 2 of 5) Blood cultures negative to date x2 (4) Falls: Code(s): W19.XXXA - Unspecified fall, initial encounter Status: Acute Assessment and Plan: PT/OT consulted. (5) Hypomagnesemia: Code(s): E83.42 - Hypomagnesemia Status: Acute Assessment and Plan: Magnesium level 1.9. Stable. (6) Lower back pain: Code(s): M54.50 - Low back pain, unspecified Status: Acute Assessment and Plan: c/o lower lumbar pain, mild and aching. Add lidoderm patch and PRN acetaminophen. Avoid narcotics if possible due to hyponatremia. Plan CODE STATUS: DNR Disposition: likely return to SNF Time Spent With Patient Time with patient: 15 - 25 minutes Subjective Date/time seen: 06/07/22 12:43 Interval history: Bere Roman is a 76 year old female with a history of depression, CKD, HLD, prediabetes, LBBB, migraines who presents with altered mental status. Per chart review, family believes that her mental status has been worsening over the past week. She has multiple falls. Patient sitting up in the chair. She reports feeling better today. No abd pain, N/V/D, dysuria, flank pain, urinary urgency or frequency. Her appetite is improving. Sodium level is still fluctuating. Review of Systems Review of Systems: All systems reviewed & are unremarkable except as noted in HPI and below Exam Narrative: General: chronically ill appearing older adult female. No acute distress. Neuro: Awake, AOx3, forgetful, Speech clear and appropriate. CN 2-12 intact. No focal deficits. HEENT: normocephalic, atraumatic, EOMI, sclerae anicteric. Hearing grossly intact. Respiratory: clear to auscultation anteriorly, nonlabored breathing Cardio: regular rate, regular rhythm with S1-S2 Abdomen: nondistended, normoactive bowel sounds, soft. No CVA or suprapubic tenderness. Extremities: No edema, no erythema, DP pulses palpable +2 bilaterally. Moves all 4 extremities equally and with equal strength. Skin: no rashes or lesions, warm and dry, Normal complexion for ethnicity. Objective Data Vital Signs Vital Signs: Vital Signs - 24 hr 06/06/22 16:00 06/06/22 16:00 06/06/22 20:00 Temperature 97.2 F L Pulse Rate 100 105 H 70 Respiratory Rate 16 Blood Pressure 118/67 Pulse Oximetry 99 Oxygen Delivery 06/06/22 23:58 06/07/22 00:00 06/07/22 04:00 Temperature 97.9 F Pulse Rate 76 63 93 Respiratory Rate 18 Blood Pressure 132/73 Pulse Oximetry 94 Oxygen Delivery 06/07/22 08:00 06/07/22 10:29 06/07/22 08:00 Temperature 97.9 F Pulse Rate 84 Respiratory Rate 16 Blood Pressure 168/75 H Pulse Oximetry 100 Oxygen Delivery Room Air Room Air
[2022-06-07 16:41] LABS: Sodium 116 mmol/L (137-145)
[2022-06-07] MEDS: FUROSEMIDE 10 MG TABLET PO ×2 (16:59)
[2022-06-07 20:33] LABS: Abnormal Protein Band 1 1 mg/dL; Total Protein/Creatinine Ratio 563 mg/g creat (24-184)
[2022-06-07 21:50] LABS: Sodium 124 mmol/L (137-145)
[2022-06-08] VITALS (9 sets, daily range): BP systolic 130–146; BP diastolic 66–75; PULSE 60–121; RESP 16–18; TEMP 36.2–36.6; O2SAT 98–100
[2022-06-08 06:13] LABS: Hematocrit 30.4 % (37.0-47.0); Mean Corpuscular HGB Conc 32.9 g/dl (32-36); Mean Corpuscular Hemoglobin 26.7 pg (26-34); Mean Corpuscular Volume 81.1 fl (80-100); Mean Platelet Volume 9.5 fl (7.4-10.4); Platelet Count Result 347 k/mm3 (150-375); Red Blood Count 3.75 M/mm3 (4.2-5.4); White Blood Count 6.6 K/mm3 (4.5-10.0)
[2022-06-08] MEDS: HYDROcodone/acetaminophen (*CRX) 5-325 MG TABLET 1 TAB PO ×2 (06:20→22:32)
[2022-06-08 06:29] LABS: Anion Gap 9 mmol/L (8-16); Blood Urea Nitrogen 10 mg/dL (7-17); Calcium 8.7 mg/dL (8.4-10.2); Carbon Dioxide 28 mmol/L (22-30); Chloride 90 mmol/L (98-107); Estimated CRCL calculation 68 ml/min; Estimated Glomerular Filt Rate > 60; Glucose 132 mg/dL (65-110); Potassium 3.5 mmol/L (3.4-5.0); Sodium 127 mmol/L (137-145)
[2022-06-08] MEDS: CEFDINIR 300 MG CAPSULE PO ×2 (08:09→20:18)
[2022-06-08] MEDS: FUROSEMIDE 10 MG TABLET PO ×2 (08:09→16:27)
[2022-06-08] MEDS: LIDOCAINE 5% PATCH 1 PATCH TRANSDERM (08:09)
[2022-06-08] MEDS: SODIUM CHLORIDE 1 GM TABLET PO ×2 (08:09→16:27)
[2022-06-08] MEDS: HEPARIN SODIUM 5,000 UNITS/ML VIAL 5000 UNITS SUB-Q ×2 (08:11→20:18)
--- NOTE | 2022-06-08 09:50 | P.PNNP_ITS ---
Progress Note: A&P Assessment and Plan (1) Acute hyponatremia: Code(s): E87.1 - Hypo-osmolality and hyponatremia Status: Acute Assessment and Plan: * slowly and steady improvement * sodium 116mmol/L on presentation * apparently quite acute as noted by family * sodium 133 on 06/02/22 * sodium 136 in April 2022 * no improvement despite normal saline IVFs * given presentation with altered mental status and hallucination - 3% saline given * sodium has still fluctuatedto extremes as noted above but overall better * goal of therapy would a rate of change of 4 - 6mmol/L in 24 hours but not to exceed 8mmol/L (achieved) * etiology not clear * possibly medication induced since was on lexapro recently * however, history of brain/neurological issues ( cerebral edema ) could be playing a role as well * pain medications/narcotics * COVID infection(?) * evaluation to date: * TSH and cortisol okay * CT of head negative * urine electrolytes are non-prerenal * SPEP and serum/urine osmolality pending; UPEP A low level monoclonal type peak is present on the electrophoretogram which may be due to a monoclonal gammopathy * check serum/urine immunofixation (results pending) * holding SSRI * current therapy = fluid restriction, salt tabs and low dose lasix * follow serial sodium levels (2) Altered mental status: Code(s): R41.82 - Altered mental status, unspecified Status: Acute Assessment and Plan: * mentation has significantly improved * etiology not clear * secondary to hyponatremia? * due to UTI? * combination of both * monitor blood/urine cultures * head CT negative * follow trend of mentation with interventions to date (3) UTI (urinary tract infection): Code(s): N39.0 - Urinary tract infection, site not specified Status: Acute Assessment and Plan: * UA culture with Klebsiella * on antibiotics (4) COVID-19 virus infection: Code(s): U07.1 - COVID-19 Status: Acute Assessment and Plan: * no acute symptoms * respiratory status stable * no evidence of hypoxia or need for supplemental oxygen * continue supportive therapy (5) Falls: Code(s): W19.XXXA - Unspecified fall, initial encounter Status: Acute Assessment and Plan: * apparently this has been going on for the last week * fall precautions initiated * PT/OT Will continue to follow. Subjective Date/time seen: 06/08/22 09:50 No new issues or problems to report at this time; eating and drinking okay; stable hemodynamics and respiratory status; no apparent distress voiced; no events overnight or earlier this morning. Exam Narrative: General: ill appearing female in NAD Heart: normal S1 and S2; no rub Lungs: clear to auscultation Abdomen: soft, nontender, nondistended, positive bowel sounds Extremities: no cyanosis or clubbing; 2+ edema Skin: warm and intact Objective Data Vital Signs Vital Signs: Vital Signs Temp Pulse Resp BP Pulse Ox O2 Del Method 06/08/22 05:15 36.6 C 94 16 146/75 H 98 06/08/22 04:00 60 06/08/22 00:00 74 06/07/22 20:00 101 H 06/07/22 19:27 36.4 C 95 18 125/66 99 06/07/22 16:00 97 06/07/22 15:52 36.7 C 99 16 112/69 99 06/07/22 12:35 3
--- NOTE | 2022-06-08 09:50 | PM.PNNEP ---
Progress Note: A&P Assessment and Plan (1) Acute hyponatremia: Code(s): E87.1 - Hypo-osmolality and hyponatremia Status: Acute Assessment and Plan: slowly and steady improvement sodium 116mmol/L on presentation apparently quite acute as noted by family sodium 133 on 06/02/22 sodium 136 in April 2022 no improvement despite normal saline IVFs given presentation with altered mental status and hallucination - 3% saline given sodium has still fluctuatedto extremes as noted above but overall better goal of therapy would a rate of change of 4 - 6mmol/L in 24 hours but not to exceed 8mmol/L (achieved) etiology not clear possibly medication induced since was on lexapro recently however, history of brain/neurological issues ( cerebral edema ) could be playing a role as well pain medications/narcotics COVID infection(?) evaluation to date: TSH and cortisol okay CT of head negative urine electrolytes are non-prerenal SPEP and serum/urine osmolality pending; UPEP A low level monoclonal type peak is present on the electrophoretogram which may 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 due to UTI? combination of both monitor blood/urine cultures head CT negative follow trend of mentation with interventions to date (3) UTI (urinary tract infection): Code(s): N39.0 - Urinary tract infection, site not specified Status: Acute Assessment and Plan: UA culture with Klebsiella on antibiotics (4) COVID-19 virus infection: Code(s): U07.1 - COVID-19 Status: Acute Assessment and Plan: no acute symptoms respiratory status stable no evidence of hypoxia or need for supplemental oxygen continue supportive therapy (5) Falls: Code(s): W19.XXXA - Unspecified fall, initial encounter Status: Acute Assessment and Plan: apparently this has been going on for the last week fall precautions initiated PT/OT Will continue to follow. Subjective Date/time seen: 06/08/22 09:50 No new issues or problems to report at this time; eating and drinking okay; stable hemodynamics and respiratory status; no apparent distress voiced; no events overnight or earlier this morning. Exam Narrative: General: ill appearing female in NAD Heart: normal S1 and S2; no rub Lungs: clear to auscultation Abdomen: soft, nontender, nondistended, positive bowel sounds Extremities: no cyanosis or clubbing; 2+ edema Skin: warm and intact Objective Data Vital Signs Vital Signs: Vital Signs Temp Pulse Resp BP Pulse Ox O2 Del Method 06/08/22 05:15 36.6 C 94 16 146/75 H 98 06/08/22 04:00 60 06/08/22 00:00 74 06/07/22 20:00 101 H 06/07/22 19:27 36.4 C 95 18 125/66 99 06/07/22 16:00 97 06/07/22 15:52 36.7 C 99 16 112/69 99 06/07/22 12:35 36.6 C 80 18 131/71 100 06/07/22 12:00 103 H 06/07/22 10:29 Room Air Intake/Output Intake/Output: Intake & Output 06/05/22 06/06/22 06/07/22 06/08/22 23:59 23:59 23:59 23:59 Intake Total 630 680 860 240 Output Total 1700 2850 1100 1300 Balance -1070 -2170 -240 -1060 Meds/Results Medications: Active Medications Generic Name Dose Route Start Last Admin Trade Name Freq PRN Reason Stop Dose Admin Acetaminophen 650 mg 06/04/22 12:01 Acetaminophen 325 Mg Tablet PO Q4H PRN Mild Pain (1-3) or Fever Hydrocodone Bitart/Acetaminophen 1 tab 06/04/22 12:01 06/08/22 06:20 Hydrocodone/Acetaminophen (*Crx) 5-325 Mg Tablet PO 1 t
[2022-06-08 11:26] LABS: Sodium 127 mmol/L (137-145)
--- NOTE | 2022-06-08 12:32 | PM.IMPN ---
Progress Note: A&P Assessment and Plan (1) Altered mental status: Code(s): R41.82 - Altered mental status, unspecified Status: Acute Assessment and Plan: Acute encephalopathy, Presumed secondary to hyponatremia and acute infection. TSH, cortisol WNL Vitamin B12, folate WNL CT head unremarkable Neuro consulted - likely secondary to acute infection and hyponatremia. Improving- appears at baseline. (2) Acute hyponatremia: Code(s): E87.1 - Hypo-osmolality and hyponatremia Status: Acute Assessment and Plan: Sodium 116 on presentation Per [id number], sodium was 133 two days prior on 06/02 Nephrology consulted and appreciate recommendations. Neuro exam improving. Laboratory workup pending including protein electrophoresis SSRI and PPI held Continue serial sodium monitoring 06/04 sodium 116, 116, 114, 114 - 2 L normal saline, NS 3% x2 given (263 mL and 500 mL) 06/05 sodium 116, 114, 115, 120, 121 - NS 3% x1 340 mL 06/06 sodium 115, 122, 119, 123, 118, 121 - sodium chloride 1 gram tabs 06/07 sodium 118, 124, 123, 116, 124 - continue NaCl 1 gram BID, low dose lasix added. 06/08 sodium 127, 127 - continue sodium tabs and lasix (3) UTI (urinary tract infection): Code(s): N39.0 - Urinary tract infection, site not specified Status: Acute Assessment and Plan: IV ceftriaxone start on admission 06/04 - 06/05 Urine culture with klebsiella pnemoniae Change to cefdinir 300 mg PO BID x 5 days on 06/06 (day 3 of 5) Blood cultures negative to date x2 (4) Falls: Code(s): W19.XXXA - Unspecified fall, initial encounter Status: Acute Assessment and Plan: PT/OT consulted. Stable. (5) Hypomagnesemia: Code(s): E83.42 - Hypomagnesemia Status: Acute Assessment and Plan: Stable. (6) Lower back pain: Code(s): M54.50 - Low back pain, unspecified Status: Acute Assessment and Plan: c/o lower lumbar pain, mild and aching. Add lidoderm patch and PRN acetaminophen. Avoid narcotics if possible due to hyponatremia. Stable. (7) COVID-19 virus infection: Code(s): U07.1 - COVID-19 Status: Acute Assessment and Plan: COVID19 PCR positive on 06/04. Asymptomatic. continue isolation precautions. No indication for dexamethasone or Remdesivir. Monitor respiratory status. Plan CODE STATUS: DNR Disposition: Return to SNF Time Spent With Patient Time with patient: 15 - 25 minutes Subjective Date/time seen: 06/08/22 12:32 Interval history: Bere Roman is a 76 year old female with a history of depression, CKD, HLD, prediabetes, LBBB, migraines who presents with altered mental status. Per chart review, family believes that her mental status has been worsening over the past week. She has multiple falls. Patient sitting up in the chair. She denies new complaints or overnight events. Review of Systems Review of Systems: All systems reviewed & are unremarkable except as noted in HPI and below Exam Narrative: General: chronically ill appearing older adult female. Sitting up in the chair. No acute distress. Neuro: Awake, AOx3, forgetful, Speech clear and appropriate. No focal deficits. HEENT: Pupils equal and round. sclerae anicteric. Hearing grossly intact. Respiratory: clear to auscultation anteriorly, nonlabored breathing, speaking in full sentences. Cardio: regular rate, regular rhythm with S1-S2. Abdomen: nondistended, normoactive bowel sounds, soft. No CVA or suprapubic tenderness. Martinez: clear, yellow urine. Extremities: No edema, no erythema, DP pulses palpable +2 bilaterally. Moves all 4 extremities equally and with equal strength. Skin: no rashes or lesions, warm and dry, Normal complexion for ethnicity. Objective Data Vital Signs Vital Signs: Vital Signs - 24 hr 06/07/22 12:35 06/07/22 15:52 06/07/22 16:00 Temperature 97.8 F 98.1 F
[2022-06-08 15:22] LABS: Abnormal Protein Band 1 0.3 g/dL; Albumin 2.7 g/dL (3.8-4.8); Alpha 1 Globulin 0.4 g/dL (0.2-0.3); Alpha 2 Globulin 0.6 g/dL (0.5-0.9); Beta 1 Globulin 0.3 g/dL (0.4-0.6); Gamma Globulin 0.8 g/dL (0.8-1.7)
[2022-06-08 17:09] LABS: Chloride Rand Ur 162 mmol/L (32-290); Chloride/Creatinine Rand Ur 1080 (38-318); Creatinine Random Urine 15 mg/dL (20-275)
[2022-06-08] MEDS: TOLNAFTATE 1% POWDER 45 GM BTL 1 APPLIC TOPICAL (20:21)
[2022-06-09] VITALS (7 sets, daily range): BP systolic 139–155; BP diastolic 69–86; PULSE 59–108; RESP 18–20; TEMP 36.2–36.7; O2SAT 95–100
[2022-06-09 06:06] LABS: Hematocrit 33.2 % (37.0-47.0); Hemoglobin 10.7 g/dL (12.0-15.0); Mean Corpuscular HGB Conc 32.2 g/dl (32-36); Mean Corpuscular Hemoglobin 26.8 pg (26-34); Mean Corpuscular Volume 83.2 fl (80-100); Mean Platelet Volume 9.4 fl (7.4-10.4); Platelet Count Result 328 k/mm3 (150-375); Red Blood Count 3.99 M/mm3 (4.2-5.4); Red Cell Distribution Width 14.2 % (11.5-14.5); White Blood Count 5.3 K/mm3 (4.5-10.0)
[2022-06-09 06:23] LABS: Anion Gap 9 mmol/L (8-16); Blood Urea Nitrogen 8 mg/dL (7-17); Calcium 8.9 mg/dL (8.4-10.2); Carbon Dioxide 28 mmol/L (22-30); Chloride 93 mmol/L (98-107); Estimated CRCL calculation 68 ml/min; Estimated Glomerular Filt Rate > 60; Glucose 118 mg/dL (65-110); Potassium 3.4 mmol/L (3.4-5.0); Sodium 130 mmol/L (137-145)
[2022-06-09] MEDS: LIDOCAINE 5% PATCH 1 PATCH TRANSDERM (09:20)
[2022-06-09] MEDS: FUROSEMIDE 10 MG TABLET PO ×2 (09:20→16:52)
[2022-06-09] MEDS: SODIUM CHLORIDE 1 GM TABLET PO ×2 (09:20→16:52)
[2022-06-09] MEDS: HEPARIN SODIUM 5,000 UNITS/ML VIAL 5000 UNITS SUB-Q ×2 (09:20→21:15)
[2022-06-09] MEDS: CEFDINIR 300 MG CAPSULE PO ×2 (09:20→21:15)
[2022-06-09] MEDS: TOLNAFTATE 1% POWDER 45 GM BTL 1 APPLIC TOPICAL ×2 (09:23→21:16)
--- NOTE | 2022-06-09 14:02 | P.PNNP_ITS ---
Progress Note: A&P Assessment and Plan (1) Acute hyponatremia: Code(s): E87.1 - Hypo-osmolality and hyponatremia Status: Acute Assessment and Plan: * slowly and steady improvement noted * sodium 116mmol/L on presentation * apparently quite acute as noted by family * sodium 133 on 06/02/22 * sodium 136 in April 2022 * no improvement despite normal saline IVFs * given presentation with altered mental status and hallucination - 3% saline given * sodium has still fluctuatedto extremes as noted above but overall better * goal of therapy would a rate of change of 4 - 6mmol/L in 24 hours but not to exceed 8mmol/L (achieved) * etiology not clear * possibly medication induced since was on lexapro recently * however, history of brain/neurological issues ( cerebral edema ) could be playing a role as well * pain medications/narcotics * COVID infection(?) * evaluation to date: * TSH and cortisol okay * CT of head negative * urine electrolytes are non-prerenal * SPEP and serum/urine osmolality pending; UPEP A low level monoclonal type peak is present on the electrophoretogram which may be due to a monoclonal gammopathy * check serum/urine immunofixation (results pending) * holding SSRI * current therapy = fluid restriction, salt tabs and low dose lasix * follow serial sodium levels (2) Altered mental status: Code(s): R41.82 - Altered mental status, unspecified Status: Acute Assessment and Plan: * mentation has significantly improved * etiology not clear * secondary to hyponatremia? * due to UTI? * combination of both * monitor blood/urine cultures * head CT negative * follow trend of mentation with interventions to date (3) UTI (urinary tract infection): Code(s): N39.0 - Urinary tract infection, site not specified Status: Acute Assessment and Plan: * UA culture with Klebsiella * on antibiotics (4) COVID-19 virus infection: Code(s): U07.1 - COVID-19 Status: Acute Assessment and Plan: * no acute symptoms * respiratory status stable * no evidence of hypoxia or need for supplemental oxygen * continue supportive therapy (5) Falls: Code(s): W19.XXXA - Unspecified fall, initial encounter Status: Acute Assessment and Plan: * apparently this has been going on for the last week * fall precautions initiated * PT/OT Would not be opposed to discharge from renal perspective today or tomorrow (assuming sodium is stable if not better) since she is going back to her nursing facility (which can do repeat labs and provide closer monitoring) -- will need repeat labs next week to ensure sodium is stable if not continues to improve along with attempts at weaning off salt tabs and lasix as well as fluid restric tion. Will continue to follow. Subjective Date/time seen: 06/09/22 14:02 Sodium continues to slowly improve with current interventions to date; otherwise, no apparent distress or acute complaints voiced at the time of my visit; mentation remains stable (if not better) as well; no events overnight or earlier this morning. Exam Narrative: General: female in NAD Heart: normal S1 and S2; no rub Lungs: clear to auscultation Abdomen: soft, nontender, nondistended, positive bowel sounds Extremities: no cyanosis or clubbing; 1 - 2+ edema Skin: warm and intact Objective Data Vital Signs Vital Signs:
--- NOTE | 2022-06-09 14:02 | PM.PNNEP ---
Progress Note: A&P Assessment and Plan (1) Acute hyponatremia: Code(s): E87.1 - Hypo-osmolality and hyponatremia Status: Acute Assessment and Plan: slowly and steady improvement noted sodium 116mmol/L on presentation apparently quite acute as noted by family sodium 133 on 06/02/22 sodium 136 in April 2022 no improvement despite normal saline IVFs given presentation with altered mental status and hallucination - 3% saline given sodium has still fluctuatedto extremes as noted above but overall better goal of therapy would a rate of change of 4 - 6mmol/L in 24 hours but not to exceed 8mmol/L (achieved) etiology not clear possibly medication induced since was on lexapro recently however, history of brain/neurological issues ( cerebral edema ) could be playing a role as well pain medications/narcotics COVID infection(?) evaluation to date: TSH and cortisol okay CT of head negative urine electrolytes are non-prerenal SPEP and serum/urine osmolality pending; UPEP A low level monoclonal type peak is present on the electrophoretogram which may 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 due to UTI? combination of both monitor blood/urine cultures head CT negative follow trend of mentation with interventions to date (3) UTI (urinary tract infection): Code(s): N39.0 - Urinary tract infection, site not specified Status: Acute Assessment and Plan: UA culture with Klebsiella on antibiotics (4) COVID-19 virus infection: Code(s): U07.1 - COVID-19 Status: Acute Assessment and Plan: no acute symptoms respiratory status stable no evidence of hypoxia or need for supplemental oxygen continue supportive therapy (5) Falls: Code(s): W19.XXXA - Unspecified fall, initial encounter Status: Acute Assessment and Plan: apparently this has been going on for the last week fall precautions initiated PT/OT Would not be opposed to discharge from renal perspective today or tomorrow (assuming sodium is stable if not better) since she is going back to her nursing facility (which can do repeat labs and provide closer monitoring) -- will need repeat labs next week to ensure sodium is stable if not continues to improve along with attempts at weaning off salt tabs and lasix as well as fluid restriction. Will continue to follow. Subjective Date/time seen: 06/09/22 14:02 Sodium continues to slowly improve with current interventions to date; otherwise, no apparent distress or acute complaints voiced at the time of my visit; mentation remains stable (if not better) as well; no events overnight or earlier this morning. Exam Narrative: General: female in NAD Heart: normal S1 and S2; no rub Lungs: clear to auscultation Abdomen: soft, nontender, nondistended, positive bowel sounds Extremities: no cyanosis or clubbing; 1 - 2+ edema Skin: warm and intact Objective Data Vital Signs Vital Signs: Vital Signs Temp Pulse Resp BP Pulse Ox O2 Del Method 06/09/22 12:00 104 H 06/09/22 08:00 62 06/09/22 04:51 36.6 C 82 18 155/83 H 100 06/09/22 04:00 59 L 06/09/22 00:00 64 06/08/22 20:00 93 18 100 Room Air 06/08/22 20:00 93 06/08/22 19:36 36.6 C 86 18 137/66 100 06/08/22 16:00 121 H 06/08/22 14:47 36.2 C L 99 16 130/70 100 Intake/Output Intake/Output: Intake & Output 06/06/22 06/07/22 06/08/22 06/09/22 23:59 23:59 23:59 23:59 Intake Total 680 860 870 650 Output Total
--- NOTE | 2022-06-09 16:37 | PM.IMPN ---
Progress Note: A&P Assessment and Plan (1) Altered mental status: Qualifiers: Altered mental status type: somnolence Qualified Code(s): R40.0 - Somnolence Code(s): R41.82 - Altered mental status, unspecified Status: Acute Assessment and Plan: Acute encephalopathy, Presumed secondary to hyponatremia and acute infection. TSH, cortisol WNL Vitamin B12, folate WNL CT head unremarkable Neuro consulted - likely secondary to acute infection and hyponatremia. Resolved- at baseline. (2) Acute hyponatremia: Code(s): E87.1 - Hypo-osmolality and hyponatremia Status: Acute Assessment and Plan: Sodium 116 on presentation Per [id number], sodium was 133 two days prior on 06/02 Nephrology consulted and appreciate recommendations. Neuro exam improving. Laboratory workup pending including protein electrophoresis SSRI and PPI held Continue serial sodium monitoring 06/04 sodium 116, 116, 114, 114 - 2 L normal saline, NS 3% x2 given (263 mL and 500 mL) 06/05 sodium 116, 114, 115, 120, 121 - NS 3% x1 340 mL 06/06 sodium 115, 122, 119, 123, 118, 121 - sodium chloride 1 gram tabs 06/07 sodium 118, 124, 123, 116, 124 - continue NaCl 1 gram BID, low dose lasix added. 06/08 sodium 127, 127 - continue sodium tabs and lasix 06/09 sodium 130 - continue sodium tablets and low dose lasix. Repeat labs in 1 seek and follow up with Nephrology outpatient. DC cuellar 06/09/22; poor oral intake per family; she may need assistance with feeding. (3) UTI (urinary tract infection): Qualifiers: Urinary tract infection type: acute cystitis Hematuria presence: without hematuria Qualified Code(s): N30.00 - Acute cystitis without hematuria Code(s): N39.0 - Urinary tract infection, site not specified Status: Acute Assessment and Plan: IV ceftriaxone start on admission 06/04 - 06/05 Urine culture with klebsiella pnemoniae 06/06 changed to cefdinir 300 mg PO BID x 5 days on 06/06 (day 4 of 5) Blood cultures negative to date x2 (4) Falls: Qualifiers: Encounter type: initial encounter Qualified Code(s): W19.XXXA - Unspecified fall, initial encounter Code(s): W19.XXXA - Unspecified fall, initial encounter Status: Acute Assessment and Plan: PT/OT consulted. Patient ambulating with FWW, minimal assist x1 with frequent cuing. Stable. (5) Hypomagnesemia: Code(s): E83.42 - Hypomagnesemia Status: Acute Assessment and Plan: Stable. (6) Lower back pain: Qualifiers: Chronicity: chronic Back pain laterality: midline Sciatica presence: without sciatica Qualified Code(s): M54.50 - Low back pain, unspecified; G89.29 - Other chronic pain Code(s): M54.50 - Low back pain, unspecified Status: Acute Assessment and Plan: c/o lower lumbar pain, mild and aching. Add lidoderm patch and PRN acetaminophen. Avoid narcotics if possible due to hyponatremia. Stable. (7) COVID-19 virus infection: Code(s): U07.1 - COVID-19 Status: Acute Assessment and Plan: COVID19 PCR positive on 06/04. Asymptomatic. continue isolation precautions. No indication for dexamethasone or Remdesivir. Monitor respiratory status. Plan CODE STATUS: DNR Disposition: Return to SNF. Plan to discharge back to SNF tomorrow 06/10/22 if stable and voiding after cuellar removal. Time Spent With Patient Time with patient: 25 - 35 minutes (>50% time spent educating patient and family. ) Subjective Date/time seen: 06/09/22 16:37 Interval history: Bere Roman is a 76 year old female with a history of depression, CKD, HLD, prediabetes, LBBB, migraines who presents with altered mental status. Per chart review, family believes that her mental status has been worsening over the past week. She has multiple falls. Patient sitting up in the chair. She denies new complaints or overnight events
[2022-06-10 04:41] VITALS: BP 132/88; PULSE 80; RESP 18; TEMP 36.2; O2SAT 99
[2022-06-10 05:17] LABS: Hemoglobin 9.6 g/dL (12.0-15.0); Mean Corpuscular Hemoglobin 26.7 pg (26-34); Mean Corpuscular Volume 83.6 fl (80-100); Mean Platelet Volume 9.3 fl (7.4-10.4); Platelet Count Result 326 k/mm3 (150-375); Red Blood Count 3.59 M/mm3 (4.2-5.4); Red Cell Distribution Width 14.5 % (11.5-14.5); White Blood Count 5.1 K/mm3 (4.5-10.0)
[2022-06-10 05:38] LABS: Anion Gap 8 mmol/L (8-16); Blood Urea Nitrogen 8 mg/dL (7-17); Calcium 8.3 mg/dL (8.4-10.2); Carbon Dioxide 33 mmol/L (22-30); Chloride 91 mmol/L (98-107); Estimated CRCL calculation 68 ml/min; Estimated Glomerular Filt Rate > 60; Glucose 133 mg/dL (65-110); Potassium 3.5 mmol/L (3.4-5.0); Sodium 132 mmol/L (137-145)
[2022-06-10] MEDS: CEFDINIR 300 MG CAPSULE PO (09:30)
[2022-06-10] MEDS: SODIUM CHLORIDE 1 GM TABLET PO (09:30)
[2022-06-10] MEDS: FUROSEMIDE 10 MG TABLET PO (09:30)
[2022-06-10] MEDS: TOLNAFTATE 1% POWDER 45 GM BTL 1 APPLIC TOPICAL (09:31)
[2022-06-10] MEDS: LIDOCAINE 5% PATCH 1 PATCH TRANSDERM (09:31)
[2022-06-10] MEDS: HEPARIN SODIUM 5,000 UNITS/ML VIAL 5000 UNITS SUB-Q (09:32)
--- NOTE | 2022-06-10 10:03 | P.PNNP_ITS ---
Progress Note: A&P Assessment and Plan (1) Acute hyponatremia: Code(s): E87.1 - Hypo-osmolality and hyponatremia Status: Acute Assessment and Plan: * slowly and steady improvement noted * sodium 116mmol/L on presentation * apparently quite acute as noted by family * sodium 133 on 06/02/22 * sodium 136 in April 2022 * no improvement despite normal saline IVFs * given presentation with altered mental status and hallucination - 3% saline given * sodium has still fluctuatedto extremes as noted above but overall better * goal of therapy would a rate of change of 4 - 6mmol/L in 24 hours but not to exceed 8mmol/L (achieved) * etiology not clear * possibly medication induced since was on lexapro recently * however, history of brain/neurological issues ( cerebral edema ) could be playing a role as well * pain medications/narcotics * COVID infection(?) * evaluation to date: * TSH and cortisol okay * CT of head negative * urine electrolytes are non-prerenal * SPEP and serum/urine osmolality pending; UPEP A low level monoclonal type peak is present on the electrophoretogram which may be due to a monoclonal gammopathy * check serum/urine immunofixation (results pending) * holding SSRI * current therapy = fluid restriction, salt tabs and low dose lasix * follow serial sodium levels (2) Altered mental status: Qualifiers: Altered mental status type: somnolence Qualified Code(s): R40.0 - Somnolence Code(s): R41.82 - Altered mental status, unspecified Status: Acute Assessment and Plan: * mentation has significantly improved * etiology not clear * secondary to hyponatremia? * due to UTI? * combination of both * monitor blood/urine cultures * head CT negative * follow trend of mentation with interventions to date (3) UTI (urinary tract infection): Qualifiers: Hematuria presence: without hematuria Urinary tract infection type: acute cystitis Qualified Code(s): N30.00 - Acute cystitis without hematuria Code(s): N39.0 - Urinary tract infection, site not specified Status: Acute Assessment and Plan: * UA culture with Klebsiella * on antibiotics (4) COVID-19 virus infection: Code(s): U07.1 - COVID-19 Status: Acute Assessment and Plan: * no acute symptoms * respiratory status stable * no evidence of hypoxia or need for supplemental oxygen * continue supportive therapy (5) Falls: Qualifiers: Encounter type: initial encounter Qualified Code(s): W19.XXXA - Unspecified fall, initial encounter Code(s): W19.XXXA - Unspecified fall, initial encounter Status: Acute Assessment and Plan: * apparently this has been going on for the last week * fall precautions initiated * PT/OT Would not be opposed to discharge from renal perspective today since she is going back to her nursing facility (which can do repeat labs and provide closer monitoring) -- will need repeat labs next week to ensure sodium is stable if not continues to improve along with attempts at weaning off salt tabs and lasix as well as fluid restriction. Will continue to follow. Subjective Date/time seen: 06/10/22 10:03 Continues to do well in general; mentation remains stable if not better; eating and drinking okay without any issues or problems; no events overnight or earlier this morning; no apparent distress voiced at the time of my visit either. Exam Narrative:
--- NOTE | 2022-06-10 10:03 | PM.PNNEP ---
Progress Note: A&P Assessment and Plan (1) Acute hyponatremia: Code(s): E87.1 - Hypo-osmolality and hyponatremia Status: Acute Assessment and Plan: slowly and steady improvement noted sodium 116mmol/L on presentation apparently quite acute as noted by family sodium 133 on 06/02/22 sodium 136 in April 2022 no improvement despite normal saline IVFs given presentation with altered mental status and hallucination - 3% saline given sodium has still fluctuatedto extremes as noted above but overall better goal of therapy would a rate of change of 4 - 6mmol/L in 24 hours but not to exceed 8mmol/L (achieved) etiology not clear possibly medication induced since was on lexapro recently however, history of brain/neurological issues ( cerebral edema ) could be playing a role as well pain medications/narcotics COVID infection(?) evaluation to date: TSH and cortisol okay CT of head negative urine electrolytes are non-prerenal SPEP and serum/urine osmolality pending; UPEP A low level monoclonal type peak is present on the electrophoretogram which may 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 due to UTI? combination of both monitor blood/urine cultures head CT negative follow trend of mentation with interventions to date (3) UTI (urinary tract infection): Qualifiers: Hematuria presence: without hematuria Urinary tract infection type: acute cystitis Qualified Code(s): N30.00 - Acute cystitis without hematuria Code(s): N39.0 - Urinary tract infection, site not specified Status: Acute Assessment and Plan: UA culture with Klebsiella on antibiotics (4) COVID-19 virus infection: Code(s): U07.1 - COVID-19 Status: Acute Assessment and Plan: no acute symptoms respiratory status stable no evidence of hypoxia or need for supplemental oxygen continue supportive therapy (5) Falls: Qualifiers: Encounter type: initial encounter Qualified Code(s): W19.XXXA - Unspecified fall, initial encounter Code(s): W19.XXXA - Unspecified fall, initial encounter Status: Acute Assessment and Plan: apparently this has been going on for the last week fall precautions initiated PT/OT Would not be opposed to discharge from renal perspective today since she is going back to her nursing facility (which can do repeat labs and provide closer monitoring) -- will need repeat labs next week to ensure sodium is stable if not continues to improve along with attempts at weaning off salt tabs and lasix as well as fluid restriction. Will continue to follow. Subjective Date/time seen: 06/10/22 10:03 Continues to do well in general; mentation remains stable if not better; eating and drinking okay without any issues or problems; no events overnight or earlier this morning; no apparent distress voiced at the time of my visit either. Exam Narrative: General: female in NAD Heart: normal S1 and S2; no rub Lungs: clear to auscultation Abdomen: soft, nontender, nondistended, positive bowel sounds Extremities: no cyanosis or clubbing; 1+ edema Skin: no rash or nodules Objective Data Vital Signs Vital Signs: Vital Signs Temp Pulse Resp BP Pulse Ox O2 Del Method 06/10/22 09:00 Room Air 06/10/22 04:41 36.2 C L 80 18 132/88 99 06/09/22 19:53 36.7 C 96 18 142/86 H 95 06/09/22 14:00 36.2 C L 108 H 20 139/69
--- NOTE | 2022-06-10 12:54 | PM.DS ---
DS: Admitting Diagnosis Discharge Date 06/10/22 12:57 Admitting Diagnosis Altered mental status Acute hyponatremia Acute UTI Frequent falls DS: Discharge Diagnosis Discharge Diagnosis (1) Acute hyponatremia: Code(s): E87.1 - Hypo-osmolality and hyponatremia Status: Acute Assessment and Plan: Sodium 116 on presentation Per [id number], sodium was 133 two days prior on 06/02 Nephrology consulted and appreciate recommendations. Neuro exam improving. Laboratory workup pending including protein electrophoresis SSRI and PPI held Continue serial sodium monitoring 06/04 sodium 116, 116, 114, 114 - 2 L normal saline, NS 3% x2 given (263 mL and 500 mL) 06/05 sodium 116, 114, 115, 120, 121 - NS 3% x1 340 mL 06/06 sodium 115, 122, 119, 123, 118, 121 - sodium chloride 1 gram tabs 06/07 sodium 118, 124, 123, 116, 124 - continue NaCl 1 gram BID, low dose lasix added. 06/08 sodium 127, 127 - continue sodium tabs and lasix 06/09 sodium 130 - continue sodium tablets and low dose lasix. Repeat labs in 1 seek and follow up with Nephrology outpatient. 06/10/22 Sodium 132 - no change DC cuellar 06/09/22; poor oral intake per family; she may need assistance with feeding. (2) Metabolic encephalopathy: Code(s): G93.41 - Metabolic encephalopathy Status: Acute Assessment and Plan: Acute encephalopathy, Presumed secondary to hyponatremia and acute infection.? TSH, cortisol WNL Vitamin B12, folate WNL CT head unremarkable Neuro consulted - likely secondary to acute infection and hyponatremia.? Resolved- at baseline by discharge (3) UTI (urinary tract infection): Qualifiers: Hematuria presence: without hematuria Urinary tract infection type: acute cystitis Qualified Code(s): N30.00 - Acute cystitis without hematuria Code(s): N39.0 - Urinary tract infection, site not specified Status: Acute Assessment and Plan: IV ceftriaxone start on admission 06/04 - 06/05 Urine culture with klebsiella pnemoniae 06/06 changed to cefdinir 300 mg PO BID x 5 days Blood cultures negative to date x2 (4) COVID-19 virus infection: Code(s): U07.1 - COVID-19 Status: Acute Assessment and Plan: COVID19 PCR positive on 8/28. Asymptomatic. continue isolation precautions. No indication for dexamethasone or Remdesivir. Monitor respiratory status. (5) Falls: Qualifiers: Encounter type: initial encounter Qualified Code(s): W19.XXXA - Unspecified fall, initial encounter Code(s): W19.XXXA - Unspecified fall, initial encounter Status: Acute Assessment and Plan: PT/OT consulted. Presumed secondary to acute infection and hyponatremia Patient ambulating with FWW, minimal assist x1 with frequent cuing. Stable. (6) Hypomagnesemia: Code(s): E83.42 - Hypomagnesemia Status: Acute Assessment and Plan: Magnesium 1.4 on 06/06 and replaced with 2 grams IVPB mag sulfate x1. Repeat 1.9. Stable. (7) Lower back pain: Qualifiers: Back pain laterality: midline Chronicity: chronic Sciatica presence: without sciatica Qualified Code(s): M54.50 - Low back pain, unspecified; G89.29 - Other chronic pain Code(s): M54.50 - Low back pain, unspecified Status: Chronic Assessment and Plan: c/o lower lumbar pain, mild and aching. Added lidoderm patch and PRN acetaminophen. Avoid narcotics if possible due to hyponatremia. Stable with lidoderm patch and acetaminophen. DS: Summary Hospital Course Reason for hospitalization: Altered mental status Hospital Course: Bere Roman is a 76-year-old female with a history of depression, CKD, hyperlipidemia, prediabetes, aortic atherosclerosis, left bundle-branch block, migraines, and hyponatremia. She presented to the emergency department from [facility] on 06/04/2022 with concerns of altered mental status.? The patie
== END 2022-06-10 15:15 | DRG 640 ==
LOC: ANHED 09:24 → ANH3MED 12:57 → ANHIMU 18:47 → ANH3MED 06-06 18:44
PROVIDERS: Internal Medicine; Internal Medicine Nephrology; Nurse Practitioner; Physician Assistant; Admitting Provider Internal Medicine; Emergency Provider Emergency Medicine; PCP Internal Medicine; Visit Provider Nurse Practitioner Family
DX: E87.1 Hypo-osmolality and hyponatremia (principal); G93.41 Metabolic encephalopathy; U07.1 COVID-19; N30.00 Acute cystitis without hematuria; R29.6 Repeated falls; B96.1 Klebsiella pneumoniae [K. pneumoniae] as the cause of diseases classified elsewhere; E83.42 Hypomagnesemia; E78.5 Hyperlipidemia, unspecified; F32.A Depression, unspecified; G89.29 Other chronic pain; I70.0 Atherosclerosis of aorta; I44.7 Left bundle-branch block, unspecified; G43.909 Migraine, unspecified, not intractable, without status migrainosus; M54.50 Low back pain, unspecified; R73.03 Prediabetes; K22.70 Barrett's esophagus without dysplasia; F41.9 Anxiety disorder, unspecified; N18.9 Chronic kidney disease, unspecified; K21.9 Gastro-esophageal reflux disease without esophagitis; Z66 Do not resuscitate; Z87.891 Personal history of nicotine dependence; Z88.0 Allergy status to penicillin
CPT/HCPCS: 36415; 70450; 71046; 80048; 80053; 81001; 81050; 82140; 82436; 82533; 82570; 82607; 82746; 83605; 83735; 84155; 84156; 84165; 84166; 84295; 84300; 84443; 85025; 85027; 86334; 87040; 87077; 87086; 87088; 87186; 96361; 96365; 96375; 97110; 97161; 97165; 97530; 97535; 99285; A9270; C9803; G0378; J0696; J1644; J2060; J3475; J7030; J7131; U0003; U0005

== ENCOUNTER 2025-08-10 17:16 | Emergency (ER) | payer MEDICARE, OTHER, SELFPAY ==
--- NOTE | ~2025-08-10 | XR_ITS ---
XR shoulder RT min 2V 08/10/2025 19:13 Indication: Right shoulder pain after fall Procedure: 3 views right shoulder Comparison: No prior studies for comparison. Findings: There is a side plate and multiple screws transfixing the right humerus proximally. No acute fracture or traumatic malalignment. There is polyarticular osteoarthritis. Osteopenia. Right lung is unremarkable. Impression: 1: No acute fracture. Reviewed, dictated and finalized at location O. CRUSHER Impression: 1: No acute fracture.
--- NOTE | ~2025-08-10 | XR_ITS ---
EXAMINATION: XR chest 1V 08/10/2025 19:13 INDICATION: Status post fall. PROCEDURE: AP portable chest COMPARISON: 06/04/2022 FINDINGS: The lungs are clear. The cardiomediastinal silhouette is within normal limits. There are no pleural effusions. There is no pneumothorax suspected. Shallow inspiration with crowding of the pulmonary vessels. IMPRESSION: 1: NO ACUTE CARDIOPULMONARY DISEASE. Reviewed, dictated and finalized at location O. BER APPRENTICE
--- NOTE | ~2025-08-10 | CT_ITS ---
EXAMINATION: CT cervical spine wo con DATE: 08/10/2025 18:13 INDICATION: Status post fall. Neck pain. TECHNIQUE: Computed tomography (CT) of the cervical spine was performed without intravenous contrast. The dose-length product was 80 mGy-cm. COMPARISON: None FINDINGS: There is disc narrowing and endplate degenerative change at C3-4 through T1 to with degenerative anterolisthesis at C6-7, C7-T1 and T1-T2. Craniovertebral junction is normal. Odontoid process is normal. No evidence for perched facet. No spinous process fracture. Vertebral body heights are pallavi ntained. Lung apices are normal. There is intracranial atherosclerosis. There is carotid atherosclerosis. No significant paraspinal soft tissue abnormality. IMPRESSION: 1. No acute abnormality of the cervical spine. 2: Severe cervical spondylosis. Reviewed, dictated and finalized at location O. K OFF WORKER
--- NOTE | ~2025-08-10 | CT_ITS ---
EXAMINATION: CT thoracic lumbar wo con DATE: 08/10/2025 19:05 INDICATION: Status post fall. Back pain. TECHNIQUE: Computed tomography (CT) of the thoracic and lumbar spine was performed without intravenous contrast. The dose-length product was 1885.46 mGy-cm. COMPARISON: None FINDINGS: Thoracic spine: There is moderate multilevel thoracic spondylosis with accentuated kyphosis. There is levocurvature of the thoracic spine. There is accentuated kyphosis at the lower thoracic spine. No acute fracture, subluxation or dislocation. There is patchy groundglass opacities in both lungs which are nonspecific. No acute fracture or traumatic malalignment. No paraspinal soft tissue abnormality. Small hiatal hernia. Lumbar spine: There is severe multilevel lumbar spondylosis with disc narrowing, endplate degenerative change and degenerative anterolisthesis at L4-5. No acute fracture or traumatic malalignment. There is multilevel facet hypertrophy involving the L3-4 through L5-S1. There is atherosclerosis of the aorta. IMPRESSION: 1. No acute abnormality of the thoracic or lumbar spine. 2: Moderate-severe multilevel degenerative spondylosis of the thoracic and lumbar spine. Reviewed, dictated and finalized at location O. KBROKING DEALER IMPRESSION: 1. No acute abnormality of the thoracic or lumbar spine. 2: Moderate-severe multilevel degenerative spondylosis of the thoracic and lum bar spine.
--- NOTE | ~2025-08-10 | XR_ITS ---
XR pelvis 1-2V 08/10/2025 19:13 Indication: Pelvic pain after fall Procedure: AP pelvis Comparison: No prior studies for comparison. Findings: Pelvic rings intact. There is moderate osteoarthritis of the hips. There is lower lumbar spondylosis partially visualized. No acute fracture or traumatic malalignment. Impression: 1: No acute fracture. Reviewed, dictated and finalized at location O. LIANCE PROJECT MANAGER Impression: 1: No acute fracture.
--- NOTE | ~2025-08-10 | CT_ITS ---
EXAMINATION: CT brain wo con DATE: 08/10/2025 18:13 INDICATION: Status post fall. Head injury. TECHNIQUE: Computed tomography (CT) of the head was performed without intravenous contrast. The dose-length product was 681.00 mGy-cm. Automated exposure control and iterative reconstruction technique were employed. COMPARISON: CT dated 06/04/2022 FINDINGS: Mild generalized atrophy. There are scattered mild periventricular and subcortical white matter changes, most likely related to small vessel ischemic disease (microangiopathy). No ventriculomegaly or midline shift. There is intracranial atherosclerosis. There is dominant right vertebral artery. There are changes of ocular lens surgery. No acute intracranial hemorrhage, infarction, mass or mass effect. Paranasal sinuses and mastoids are pneumatized. No depressed skull fractures. IMPRESSION: 1. No acute intracranial abnormality. Reviewed, dictated and finalized at location O. A DANCE INSTRUCTOR
[2025-08-10 17:17] VITALS: BP 167/83; PULSE 96; RESP 18; TEMP 36.7; O2SAT 98
[2025-08-10 18:00] VITALS: BP 133/66; PULSE 71; RESP 17; O2SAT 98
--- OUTSIDE RECORDS SUMMARY | 2025-08-10 18:18 | XMS_ITS | Clinical Summary ---
Author Organization [facility] Address [address] [place] [address] Care Team Providers Care Load Out Supervisor Name Role Phone Radha Guaman MD Primary Care Provider Allergies Active Allergy Reactions Criticality Noted Date Comments Gabapentin Mental status changes Low 04/09/2024 Penicillins Hives Medium 05/10/2012 Hives Medications sodium chloride (Tate 128) 2 % ophthalmic solution Administer 1 drop into both eyes 2 (two) times a day 1 Active atorvastatin (LIPITOR) 10 mg tablet Take 1 tablet (10 mg total) by mouth nightly 2 Active aspirin 81 mg chewable tablet Take 1 tablet (81 mg total) by mouth daily 3 Active dimethicone/zin c oxide (KAYLIN PROTECT TOP)Indications :protective barrier cream Apply 1 application (deactivated) topically 2 (two) times a day Buttocks, sacrum, coccyx, and groin Active diclofenac sodium (VOLTAREN) 1 % gelIndications: For right shoulder pain, keep locked at facility Apply 2 g topically 2 (two) times a day 100 g 3 3 Active furosemide (LASIX) 20 mg tablet 2 tabs in the morning and 1 tab in the afternoon 270 tablet 1 3 Active vitamins A,C,E-zinc-wilmer er (ICAPS) 4,296 mcg-226 mg-90 mg capsule Take 1 capsule by mouth 2 (two) times a day Active levETIRAcetam (KEPPRA) 500 mg tablet Take 1 tablet (500 mg total) by mouth 2 (two) times a day 4 Active lidocaine (ASPERCREME) 4 % adhesive patch,medicated Place 1 patch on the skin daily 4 Active senna-docusate (PERICOLACE) 8.6-50 mgIndications:c onstipation Take 1 tablet by mouth 2 (two) times a day 4 Active acetaminophen 500 mg capsuleIndicati ons:Pain Take 2 capsules (1,000 mg total) by mouth every 6 (six) hours 4 Active oxyCODONE (ROXICODONE) 5 mg immediate release tabletIndicatio ns:Pain Take 0.5 tablets (2.5 mg total) by mouth every 4 (four) hours as needed for pain 5 tablet 4 Active ramelteon (ROZEREM) 8 mg tabletIndicatio ns:Sleep-Onset Insomnia Take 1 tablet (8 mg total) by mouth nightly 4 Active eszopiclone (LUNESTA) 3 mg tablet Take 1 tablet (3 mg total) by mouth nightly 4 Active sulfamethoxazol e-trimethoprim (BACTRIM DS) 800-160 mg per tablet Take 1 tablet (160 mg of trimethoprim total) by mouth 2 (two) times a day 4 Active naloxone (NARCAN) 4 mg/actuation spray,non-aeros ol 4 Active predniSONE (DELTASONE) 20 mg tablet 1 tablet (20 mg) 4 Active melatonin tablet 1 tablet (3 mg total) 4 Active donepeziL (ARICEPT) 5 mg tabletIndicatio ns:Alzheimer's disease with late onset (HCC) Take 1 tablet (5 mg total) by mouth nightly 30 tablet 1 4 Active Active Problems Problem Noted Date Diagnosed Date IVCD (intraventricular conduction defect) 2023 History of fall 09/24/2024 At risk for delirium 04/16/2024 Assessment & Plan (04/16/2024 2:21 PM CDT): - Ramelteon - Sleep hygiene - Delirium precautions Right hand pain 04/15/2024 Assessment & Plan (04/15/2024 2:30 PM CDT): - Right hand XR (04/15) with severe osteoarthritis - PT/OT Seizure 04/14/2024 Assessment & Plan (04/16/2024 2:16 PM CDT): #Concern for seizure - ACT called on 04/13 for unresponsiveness and shaking with concern for seizure with hypotension and bradycardia - Neurology consult - Routine EEG done 04/14, at risk for seizures - Keppra 500 mg BID - Seizure precautions - Syncope workup - Volumetric bMRI W and WO contrast ordered 04/14, can get outpatient if not done prior to discharge - Delirium precautions - Please provide seizure safety precautions on discharge - F/U with [facility], will need referrals placed Syncope 04/14/2024 Assessment & Plan (04/16/2024 2:17 PM CDT): - ACT called on 04/13 for unresponsiveness and shaking with concern for seizure with hypotension and bradycardia - Syncope workup - Cardiology consult - Telemetry monitoring, continue while inpatient - EKG with 1st degree AV block and LBBB - Orthostatic vital sign positive 04/14, tachycardic, 500 cc LR bolus ordered - Repeat orthostatic vital signs negative 04/15 - TTE (04/16): Sigmoid septum noted. Normal RV cavity size. LV cavity size is normal. Concentric LV remodeling. Normal aorta. Moderate Global reduction in Ejection Fraction. EF 38%; Paradoxical septal motion; Reduced LV myocardial longitudinal strain, -10.4%; Thickened aortic valve leaflets; Grade I Diastolic LV dysfunction. - Cardiology recommending EP consult for possible pacemaker for known conduction disease - Will need 14 day event monitor on discharge and follow up with EP clinic in 4 weeks Urinary retention 04/09/2024 Assessment & Plan (04/16/2024 2:19 PM CDT): 04/09 post op yesterday patient required straight cath due to retention. Patient unable to void overnight and this morning, Bladder scan showed >340mL; straight cath this morning, void trial in 6 hours. If unable to void plan for [facility] placement - 04/11: bladder scan 595mL --> able to void 625mL. Scheduled bladder scans q6h - 04/12: Bladder scans approx 190 but able to void independently soon after. UOP 850ccs from 7am-5pm - 04/16: straight cath x 2 overnight for urinary retention, now able to void spontaneously BMI 36.0-36.9,adult 04/09/2024 Assessment & Plan (04/09/2024 11:07 AM CDT): BMI 36.25 Restlessness and agitation 04/09/2024 Assessment & Plan (04/09/2024 12:25 PM CDT): 04/09 overnight patient confused and pulling at bedding, mittens applied, Zyprexa ordered PRN nightly for agitation DNR no code (do not resuscitate) 04/08/2024 Assessment & Plan (04/10/2024 9:54 AM CDT): Paperwork received from patient's residential care facility ([facility]). Patient is a DNR/DNI Memory loss 04/08/2024 Assessment & Plan (04/08/2024 9:53 AM CDT): Per facility patient occasionally confused and occasionally issues with memory - encourage OOB, sleep hygiene Discharge planning issues 04/08/2024 Assessment & Plan (04/21/2024 12:22 PM CDT): 04/08 NPO for OR with orthopedics 04/09 PT/OT to evaluate for placement vs return to assisted living 04/10: Hgb 7.0, transfused 1 unit prbcs. AM labs. Therapy recommending SNF 04/11: Patient is medically stable for discharge, SW/CM updated. Discharge pending facility acceptance 04/12: No updates, referrals to SNF pending 04/14: Pending EEG, syncope work up, Cardiology consult, not medically stable for discharge 04/15: Pending TTE for syncope workup, right hand XR 04/16: Pending TTE for syncope workup. Medically ready for placement once TTE done. 04/17: DC to placement -> DC cancelled, no insurance auth 04/18: Still medically stable to discharge, pending insurance auth. DC note and orders are still in. 04/19: Pending insurance auth 04/20: got insurance auth. Likely dc tomorrow when bed available 04/21: discharged to SNF Encounter for medication review 04/08/2024 Assessment & Plan (04/08/2024 9:59 AM CDT): 04/08 home medications reviewed and updated in ADMISSIONS tab; verified with [facility] and PCP office Closed supracondylar fractur e of right humerus, initial encounter 04/07/2024 Assessment & Plan (04/21/2024 12:21 PM CDT): #R communited humerus fracture - Ortho c/s 04/07 - R humerus XR 04/07 with comminuted, displaced fracture of the mid to proximal humeral shaft - Pelvis XR, R Knee XR, L femur/knee XR 04/07 w/o concern for secondary injury - 04/08 OR ([facility]) ORIF right humerus- WBAT for assist devices, otherwise NWB - 04/[address], PT/OT to evaluate - DVT PPX plan - NO PPX at discharge Immobilization: sling for comfort, out for ROM Weight Bearing: WBAT RUE for transfers/ambulation assistance only - Follow up as scheduled with Dr Bernard on 05/01 Chronic diastolic congestive heart failure 11/28 Class 2 severe obesity due t o excess calories with serious comorbidity and body mass index (BMI) of 36.0 to 36.9 in adult 11/28/2023 Lymphedema 10/13/2023 History of hyponatremia, now resolved 04/16/2022 Assessment & Plan (04/17/2024 10:05 AM CDT): - Home salt tabs held. Na remained stable ~140 History of ventricular tachycardia 04/10/2022 Snoring 04/03/2022 Assessment & Plan (04/03/2022 10:28 AM CDT): I have ordered a a home study. Patient will follow-up after the home study is complete. Hypersomnia 04/03/2022 Chronic nonintractable headache 04/03/2022 Hypertensive chronic kidney disease with stage 1 through stage 4 chronic kidney disease, or unspecified chronic kidney disease 12/20/2021 Type 2 diabetes mellitus wit h stage 2 chronic kidney disease, without long-term current use of insulin 12/20/2021 Assessment & Plan (04/08/2024 9:56 AM CDT): #T2D w/ HgA1c 7.3 (03/18) - NO DM meds - Low dose SSI - Diabetic diet Venous stasis 09/16/2021 Assessment & Plan (09/16/2021 4:16 PM LIMNOLOGIST): The color changes are very mild on her legs and given her BMI, height and lymphedema in her lower extremities along with lack of regular exercise, she is developing the skin tone changes associated with venous stasis TMJ arthralgia 04/06/2021 Aortic atherosclerosis 11/21/2018 Assessment & Plan (12/20/2021 9:55 PM CDT): This was seen on past imaging and is basically plaque build up of the aorta. This can be normal with aging but elevated cholesterol, blood sugar, blood pressure, or smoking can make this worse. I recommend statin to treat this condition. CKD (chronic kidney disease), stage III 11/21/19 19 Generalized anxiety disorder 11/21/2018 Diabetic polyneuropathy asso ciated with type 2 diabetes mellitus 11/21/2018 Mixed hyperlipidemia 03/23/2010 Assessment & Plan (04/08/2024 9:51 AM CDT): Continue home Lipitor Abarca's esophagus 05/23/2006 Resolved Problems Problem Noted Date Diagnosed Date Resolved Date NSVT (nonsustained ventricular tachycardia) 11/28/2023 03/19/2024 Fall, initial encounter 10/13/202303/08 Generalized weakness 10/13/2023 024 Confusion 10/13/2023 11/28/2023 UTI (urinary tract infection) 08/17/2022 11/28/2023 Assessment & Plan (02/15/2023 2:01 PM CDT): -No recent issues. -Per family members, she does not show typical sx of UTI. They find out she has UTI only when her urine is routinely checked. -Last UTI she had AMS. They thought possible UTI; however, she also had hyponatremia and COVID. Unclear of exact cause of AMS. I explained should only test urine when she is symptomatic (AMS and/or dysuria with bladder pain, gross hematuria, fevers) to avoid uneccessary antibiotic use. -No issues in last 6 months. She is using vaginal estrogen cream once a week. PLAN: -Use vaginal estrogen cream twice weekly. She could also try coconut or olive oil vaginally to help with atrophy symptoms. -Adequate hydration with mostly water. -Follow up prn or once yearly if she continues vaginal estrogen cream and PCP would like her to see us for refills. Assessment & Plan (08/17/2022 3:39 PM LIMNOLOGIST): -Patient reporting symptoms of vaginal atrophy. She denies personal hx of cancers. We discussed use of vaginal estrogen cream and its role in reducing UTI's. I explained UTI's cannot be cured but are managed. PLAN: -Start vaginal estrogen cream. -Continue adequate hydration with mostly water. -Encouraged to change pads regularly and when moist/soiled. -Will order renal US to rule out anatomical abnormalities. Syncope and collapse 04/09/2022 023 Ear pain, right 04/06/2021 12/20/2021 Left foot pain 05/16/2023 Encounters Date Type Department Care Team Description 07/18/2025 Orders Only [facility] Health Information Management [address] [place] [id number] Scanning, Provider from Last 3 Months Immunizations Immunization Administration Dates Next Due Influenza, Quad, Adjuvantated, Intramuscular Influenza, Quadrivalent, Hig h Dose, Preservative Free, Intrr 08/22/2023,08/03/2022 Influenza, Quadrivalent, Split, Intramuscular Influenza, Quadrivalent, Spl it, Preservative Free, Intramuscular 07/01/2020 Influenza, Trivalent, Adjuvanted, Intramuscular 08/01/2019,08/06/2018 Influenza, Trivalent, High D ose, Split, Preservative Free, Intramuscular 08/24/2016,07/22/2015 Influenza, Trivalent, IM (MDV) 08/05/2013,2011 Moderna SARS-CoV-2 Monovalent Vaccination (12+ Y RS) 01/10/2021,12/13/2020 Pneumococcal Conjugate PCV 13 11/11/2014 Pneumococcal Polysaccharide PPV23 11/13/2016 ZOSTER LIVE 07/22/2015 Surgical History Surgery Date Site/Laterality Comments BREAST BIOPSY Medical History Medical History Date Comments Diabetes History of kidney problems PVD (peripheral vascular disease) GERD (gastroesophageal reflux disease) Aortic atherosclerosis 11/21/2018 Abarca's esophagus 05/23/2006 Generalized anxiety disorder 11/21/2018 Family History Medical History Relation Name Comments Heart disease Brother Hypertension Brother Stomach cancer Mother Heart disease Sister Relation Name Status Comments Brother Father Mother Sister Social History Tobacco Use Types Packs/Day Years Used Date Smoking Tobacco: Former Smokeless Tobacco: Never Tobacco Cessation:Counseling Given: Not Answered OASIS D0700: Social Isolation Answer Da te Recorded Frequency of experiencing loneliness or isolatio n Never 01/05/2023 OASIS A1250: Transportation Answer Date Recorded Lack of Transportation (Medical) No 01/05/2023 Lack of Transportation (Non-Medical) No 01/05/2023 Patient Unable or Declines to Respond No 01/05/2023 OASIS B1300: Health Literacy Answer Denys e Recorded Frequency of needing help to read materials from doctor or pharmacy Sometimes 01/05/2023 [facility] Utilities Answer Date Recorded In the past 12 months has th e [employer], gas, oil, or water [employer] threatened to shut off services in your home? No 11/06/2023 Social Connection and Isolation Panel Answer Date Recorded In a typical week, how many times do you talk on the phone with family, friends, or neighbors? Three times a week 11/06/2023 How often do you get togethe r with friends or relatives? More than three times a week 11/06/2023 How often do you attend [facility] or gnosticist services? Never 11/06/2023 Do you belong to any clubs o r organizations such as buddhism groups, unions, fraternal or athletic groups, or school groups? No 11/06/2023 How often do you attend meet ings of the clubs or organizations you belong to? Never 11/06/2023 Marital Status Not on file 11/06/2023 AUDIT-C Answer Date Recorded Q1: How often do you have a drink containing alcohol? Never 04/08/2024 Q2: How many drinks containi ng alcohol do you have on a typical day when you are drinking? Patient does not drink Q3: How often do you have si x or more drinks on one occasion? Never 04/08/2024 Overall Financial Resource Strain (CARDIA) Answe r Date Recorded How hard is it for you to pa y for the very basics like food, housing, medical care, and heating? Not hard at all 11/06/2023 PHQ-2 Answer Date Recorded PHQ-2 Total Score (If total score is 3 or more points, staff should administer the PHQ-9) 0 03/18/2024 Hunger Vital Sign Answer Date Recorded Within the past 12 months, y ou worried that your food would run out before you got the money to buy more. Never true 11/06/19 24 Within the past 12 months, t he food you bought just didn't last and you didn't have money to get more. Never true 11/06/2023 PRAPARE - Transportation Answer Date Re corded In the past 12 months, has l ack of transportation kept you from medical appointments or from getting medications? No 10/10 In the past 12 months, has l ack of transportation kept you from meetings, work, or from getting things needed for daily living? No 11/06/2023 Housing Stability Vital Sign Answer Denys e Recorded In the last 12 months, was t here a time when you were not able to pay the mortgage or rent on time? No 11/06/2023 In the last 12 months, how many places have you lived? 1 11/06/2023 In the last 12 months, was t here a time when you did not have a steady place to sleep or slept in a senior care (including now)? No 11/06/2023 Personal Safety Answer Date Recorded Have you ever been in or are you currently in a harmful physical or emotional relationship or is someone making you feel afraid or unsafe? Denies 04/07/2024 Comments No Sex and Gender Information Value Date Recorded Sex Assigned at Not on file Legal Sex Female 7:25 AM LIMNOLOGIST Gender Identity Not on file Sexual Orientation Not on file Last Filed Vital Signs Vital Sign Reading Time Taken Comments Blood Pressure 122/83 08/05/2024 9:05 AM CDT Pulse 71 08/05/2024 9:05 AM CDT Temperature 36.3 C (97.3 F) 04/21/2024 11:22 AM CDT Respiratory Rate 16 04/21/2024 11:22 AM CDT Oxygen Saturation 96% 04/21/2024 11:22 AM CDT Inhaled Oxygen Concentration - - Weight 75.8 kg (167 lb) 08/05/2024 9:05 AM CDT Height 152.4 cm (5') 08/05/2024 9:05 AM CDT Body Mass Index 32.61 08/05/2024 9:05 AM CDT Plan of Treatment Health Maintenance Due Date Last Done Comments DTaP/Tdap/Td Vaccine (1 - Tdap) 1956 Hepatitis B Screening 1962 Zoster Vaccine (2 of 3) 09/16/2015 07/22/2015 Dilated Eye Exam 06/14/2023 06/14/2021 Osteoporosis Screening-Bone Density Scan 07/13/2023 07/13/2021, 07/11/2019 Foot Exam 11/29/2023 11/29/2022, 07/09, 12/28/2021 Hemoglobin A1C 09/17/2024 03/18/2024, 0103/2024, 04/17/2023, Additional history exists Albumin Creatinine Ratio, Urine 03/18/2025 03/18/2024, 08/11/2022, 06/22/2022, Additional history exists Depression Screening 03/18/2025 03/18/2024, 11/13/2023, 09/12/2023, Additional history exists Lipid Panel 03/18/2025 03/18/2024, 110 01/2022, 04/19/2021 Well Visit 65+ 03/18/2025 03/18/2024, 12/28/2021 eGFR 04/19/2025 04/19/2024, 04/07, 04/17/2024, Additional history exists Fall Risk Assessment 04/21/2025 04/21/2024, 03/18/2024, 09/12/2023, Additional history exists Covid-19 Vaccine (4 - 2024-2 6 season) 2025 07/29/2021, 01/10/2021, 12/13/2020 Influenza Vaccine (#1) 2025 , 08/03/2022, 07/29/2021, Additional history exists Pneumococcal vaccine 65+ Completed 11/13/2016, 01/2015 Medical Devices Implanted Type Area Boarder Machine Device Identifier Shelf Expiration Date Model / Serial / Lot Synthes Lcp Combi Philos Long [id number] 8 Hole Shaft Lock Compression 241.921 - [id number] Implanted:Qty: 1 on 04/08/2024 by Kay Bernard MD at [facility] Plate Right: Humerus Synthes I 241.921 / / Synthes 2.7mm 5mm 22mm 2.5mm Self Tap Spherical Head Small Hexagonal 202.822 - [id number] Implanted:Qty: 1 on 04/08/2024 by Kay Bernard MD at [facility] Screw Right: Humerus Synthes 202.822 / / Synthes 3.5mm 2.9mm 38mm Self Tap Lock Stardrive Conical Head T15 Full 212.116 - [id number] Implanted:Qty: 1 on 04/08/2024 by Kay Bernard MD at [facility] Screw Right: Humerus Synthes 212.116 / / Synthes 3.5mm 2.9mm 36mm Self Tap Lock Stardrive Conical Head T15 Full 212.115 - [id number] Implanted:Qty: 1 on 04/08/2024 by Kay Bernard MD at [facility] Screw Right: Humerus Synthes 212.115 / / Synthes 3.5mm 6mm 26mm 2.5mm Self Tap Small Hexagonal Socket Low Profile 204.826 - [id number] Implanted:Qty: 1 on 04/08/2024 by Kay Bernard MD at [facility] Screw Right: Humerus Synthes I 204.826 / / Synthes 3.5mm 2.9mm 28mm Self Tap Lock Stardrive Conical Head T15 Full 212.110 - [id number] Implanted:Qty: 2 on 04/08/2024 by Kay Bernard MD at [facility] Screw Right: Humerus Synthes 212.110 / / Synthes 3.5mm 2.9mm 44mm Self Tap Lock Stardrive Conical Head T15 Full 212.134 - [id number] Implanted:Qty: 1 on 04/08/2024 by Kay Bernard MD at [facility] Screw Right: Humerus Synthes I 212.134 / / Synthes 3.5mm 2.9mm 40mm Self Tap Lock Stardrive Conical Head T15 Full 212.117 - [id number] Implanted:Qty: 2 on 04/08/2024 by Kay Bernard MD at [facility] Screw Right: Humerus Synthes 212.117 / / Synthes 3.5mm 2.9mm 42mm Self Tap Lock Stardrive Conical Head Full Thread 212.118 - [id number] Implanted:Qty: 1 on 04/08/2024 by Kay Bernard MD at [facility] Screw Right: Humerus Synthes I 212.118 / / Synthes 3.5mm 6mm 22mm 2.5mm Self Tap Small Hexagonal Socket Low Profile 204.822 - [id number] Implanted:Qty: 1 on 04/08/2024 by Kay Bernard MD at [facility] Screw Right: Humerus Synthes I 204.822 / / Synthes 3.5mm 2.9mm 24mm Self Tap Lock Stardrive Conical Head Pelvis T15 212.108 - [id number] Implanted:Qty: 1 on 04/08/2024 by Kay Bernard MD at [facility] Screw Right: Humerus Synthes 212.108 / / Explanted Type Area Boarder Machine Device Identifier Shelf Expiration Date Model / Serial / Lot Synthes 3.5mm 2.9mm 42mm Self Tap Lock Stardrive Conical Head Full Thread 212.118 - [id number] Explanted:Qty: 1 on 04/08/2024 at [facility] Screw Right: Humerus Synthes I 212.118 / / Synthes 2.7mm 5mm 24mm 2.5mm Self Tap Spherical Head Small Hexagonal 202.824 - [id number] Explanted:Qty: 1 on 04/08/2024 at [facility] Screw Right: Humerus Synthes 202.824 / / Procedures Procedure Name Priority Date/Time Associated Diagnosis Comments SCAN - LABS 07/18/2025 EGFR Routine 04/19/2024 9:18 PM CDT HEMOGLOBIN A1C Routine 03/18/2024 3:51 PM CDT Type 2 diabetes mellitus with stage 2 chronic kidney disease, without long-term current use of insulin (HCC) LIPID PANEL Routine 03/18/2024 3:51 PM CDT Mixed hyperlipidemia Hypertensive chronic kidney disease with stage 1 through stage 4 chronic kidney disease, or unspecified chronic kidney disease ALBUMIN CREATININE RATIO, URINE Routine 03/18/2024 3:51 PM CDT Type 2 diabetes mellitus with stage 2 chronic kidney disease, without long-term current use of insulin (HCC) Mixed hyperlipidemia Hypertensive chronic kidney disease with stage 1 through stage 4 chronic kidney disease, or unspecified chronic kidney disease DEXA AXIAL SKELETON BONE DENSITY 1 OR MORE SITES Schedule Routine, Read Routine (OP Routine) 07/13/2021 12:43 PM CDT Post-menopausal DIABETIC EYE EXAM Routine 06/14/2021 from Last 3 Months or Most Recently Relevant to Health Maintenance Results * SCAN - LABS (07/18/2025) us Provider Scanning Final Result * eGFR (04/19/2024 9:18 PM CDT) eGFR 67 >=60 mL/min/1. 73 m2 Comment: Interpretive Data Reference Interval Normal >/= 90 mL/min/1.73m2 Mildly decreased* 60 - 89 mL/min/1.73m2 Mildly to moderately decreased 45 - 59 mL/min/1.73m2 Moderately to severely decreased 30 - 44 mL/min/1.73m2 Severely decreased 15 - 29 mL/min/1.73m2 Kidney Failure < 15 mL/min/1.73m2 *Relative to young adult level Estimated glomerular filtration rate is determined by the 2020 CKD-EPI equation recommended by the National Kidney Foundation (A Unifying Approach to GFR Estimation: Recommendations of the NKF-ASK Task Force on Reassessing the Inclusion of Race in Diagnosing Kidney Disease, JASN 2020). The CKD-EPI equation should not be used for patients with unstable renal function and has not been validated in children and those over 70. Current interpretive data was last reviewed 2021. Blood 04/19/2024 9:18 PM CDT 04/19/2024 9:32 PM CDT us Radha Black FELLER MACHINE OPERATOR LAB BLOOD ORDERABLES Fi nal Result [facility] Department [place] [address] * (ABNORMAL) Albumin Creatinine Ratio, Urine (03/18/2024 3:51 PM CDT) Albumin Ur <12.0 mg/L Comment: Interpretive Data No reference range established. Current interpretive data was last revised 2019. Testing performed by: [address] [id number] Creatinine Ur 27.7 mg/dL [facility] Comment: Interpretive Data No reference range established. Current interpretive data was last revised 2019. Testing performed by: [address] [address] Albumin Creatinine Ratio, Ur <43(H) 1 - 29 mg/g [facility] Comment:Testing performed by : [address] [address] Urine 03/18/2024 3:51 PM CDT 03/18/2024 6:19 PM CDT us Caity Zhu FELLER MACHINE OPERATOR LAB URINE ORDERABLES Final Result Performing Organization Address City/[facility]/ZIP Co de Phone Number [place] [phone] [facility] [place] [address] * (ABNORMAL) Hemoglobin A1c (03/18/2024 3:51 PM CDT) Hgb A1C 7.3(H) 4.0 - 5.6 % Comment:Testing performed by : [address] [address] Estimated Average Glucose 163 mg/dL [facility] Comment: The ADA recommends reporting an estimated Average Glucose (eAG) with all Hemoglobin A1c results using the equation derived from a study of 507 normal and diabetic adults. Minority populations were underrepresented and children were not included. (Diabetes Care 31:3147-6307, 2008). The eAG is not equivalent to a fasting glucose. Testing performed by: [address] [address] Blood 03/18/2024 3:51 PM CDT 03/18/2024 4:42 PM CDT Caity Zhu NP LAB BLOOD ORDERABLES Final Result Performing Organization Address City/[facility] Co de Phone Number [place] [id number] [facility] [place] [address] * (ABNORMAL) Lipid panel (03/18/2024 3:51 PM CDT) Pathologist [facility] Cholesterol 147 30 - 199 mg/dL Comment: Interpretive Data Ages < or = 19 years Acceptable: <170 mg/dL Borderline high: 170-199 mg/dL High: >or= 200 mg/dL Ages > or = 20 years Desirable: <200 mg/dL Borderline high: 200-239 mg/dL High: >or= 240 mg/dL Literature References: 1. Expert Panel on Integrated Guidelines for Cardiovascular Health and Risk Reduction in Children and Adolescents. Pediatrics 2011;128:S213 2. NCEP Expert Panel. Circulation 2004;110:227 Current Interpretive Data was last revised on 2018. Testing performed by: [address] [address] Triglycerides 179(H) <=149 mg/dL [facility] Comment: Interpretive Data Ages < or = 9 years Acceptable: <75 mg/dL Borderline high: 75-99 mg/dL High: >or= 100 mg/dL Ages 10 to 20 years Acceptable: <90 mg/dL Borderline high: 90-129 mg/dL High: >or= 130 mg/dL Ages > or = 20 years Desirable: <150 mg/dL Borderline high: 150-199 mg/dL High: 200-499 mg/dL Very high: >or= 499 mg/dL Literature References: 1. Expert Panel on Integrated Guidelines for Cardiovascular Health and Risk Reduction in Children and Adolescents. Pediatrics 2011;128:S213 2. NCEP Expert Panel. Circulation 2004;110:227 Current Interpretive Data was last revised on 2018. Testing performed by: [address] [address] HDL 52 >=40 mg/dL [facility] Comment: Interpretive Data Ages < or = 19 years Acceptable: >45 mg/dL Borderline low: 40-45 mg/dL Low: <40 mg/dL Ages > or = 20 years Desirable: >or= 60 mg/dL Low: <40 mg/dL Literature References: 1. Expert Panel on Integrated Guidelines for Cardiovascular Health and Risk Reduction in Children and Adolescents. Pediatrics 2011;128:S213 2. NCEP Expert Panel. Circulation 2004;110:227 Current Interpretive Data was last revised on 2018. Testing performed by: [address] [address] LDL, calculated 59 <=129 mg/dL [place] Comment: Interpretive Data Ages < or = 19 years Acceptable: <110 mg/dL Borderline high: 110-129 mg/dL High: >or= 130 mg/dL Ages > or = 20 years Optimal: <100 mg/dL Near optimal: 100-129 mg/dL Borderline high: 130-159 mg/dL High: >160 mg/dL Literature References: 1. Expert Panel on Integrated Guidelines for Cardiovascular Health and Risk Reduction in Children and Adolescents. Pediatrics 2011;128:S213 2. NCEP Expert Panel. Circulation 2004;110:227 Current Interpretive Data was last revised on 2018. Testing performed by: [address] [address] Non-HDL Cholesterol 95 mg/dL [facility] [place] Comment: Interpretive Data Ages < or = 19 years Acceptable: <120 mg/dL Borderline high: 120-144 mg/dL High: >145 mg/dL Ages > or = 20 years When triglycerides are >200 mg/dL, Non-HDL cholesterol is a secondary target of therapy with treatment goals that are 30 mg/dL greater than the LDL cholesterol target. Literature References: 1. Expert Panel on Integrated Guidelines for Cardiovascular Health and Risk Reduction in Children and Adolescents. Pediatrics 2011;128:S213 2. NCEP Expert Panel. Circulation 2004;110:227 Current Interpretive Data was last revised on 2018. Testing performed by: [address] [address] Chol/HDL ratio 3 [facility] [place] Comment:Testing performed by : [address] [address] Blood 03/18/2024 3:51 PM CDT 03/18/2024 4:42 PM CDT us Caity Zhu NP LAB BLOOD ORDERABLES Final Result [facility] [address] [facility] Department [place] [address] * Dexa Axial Skeleton Bone Density 1 or 2 Site (07/13/2021 12:43 PM CDT) Anatomical Region Laterality Modality Body N/A Mammography 07/13/2021 12:4 9 PM CDT Narrative 07/13/2021 12:50 PM CDT EXAM DESCRIPTION: DEXA AXIAL SKELETON BONE DENSITY 1 OR MORE SITES REASON FOR STUDY: 75 y/o year old F with given history of screening. Boarder Machine/Model: Aviacomm A (S/N [id number]) CLINICAL INFORMATION: Current height: 59 inches Maximum height: 64 inches Weight: 185 pounds Risk factors: none COMPARISON: None available. Dissimilar scan types or analysis methods precludes assessment for calculating a significant change. FINDINGS: AP LUMBAR SPINE L1-L4: Total BMD is 1.280 g/cm2 T-score is 2.1 LEFT HIP: Total BMD is 0.867 g/cm2 T-score is -0.6 Femoral neck BMD is 0.733 g/cm2 T-score is -1.0 IMPRESSION: Normal. FRAX not reported due to all T-scores being at or above -1.0 REFERENCE: Bone mineral density: Normal (T-score above or = -1.0) Low bone mass (T-score between -1.0 and -2.5) replaces the previously used term osteopenia Osteoporosis (T-score = or below -2.5) Medical evaluation for secondary causes of low bone mineral density may be appropriate. FRAX is a World Health Organization validated fracture risk assessment tool that calculates a person's 10 year probability of a major osteoporosis related fracture and hip fracture. According to the National Osteoporosis Foundation guidelines, postmenopausal women and men age 50 or older with low bone mass and a 10 year probability of a major osteoporosis related fracture = or greater than 20% or a 10 year probability of a hip fracture = or greater than 3% should be considered for treatment. For further information, including treatment recommendations, please refer to the 2013 ISCD Official Positions (http://www.iscd.org) and the NOF's Clinician's Guide to Prevention and Treatment of Osteoporosis (http://www.nof.org/professionals/clinical-guidelines) THIS IS AN ELECTRONICALLY VERIFIED FINAL REPORT 07/13/2021 12:50 PM - Electronically signed by Michelle Tolentino M.D. TB: TB Report ID: [id number] Reading Location: [facility] Procedure Note Michelle Tolentino MD - 07/13/2021 EXAM DESCRIPTION: DEXA AXIAL SKELETON BONE DENSITY 1 OR MORE SITES REASON FOR STUDY: 75 y/o year old F with given history ofscreening. Boarder Machine/Model: Aviacomm A (S/N [id number]) CLINICAL INFORMATION: Current height: 59 inches Maximum height: 64 inches Weight: 185 pounds Risk factors: none COMPARISON: None available. Dissimilar scan types or analysis methods precludes assessment for calculating a significant change. FINDINGS: AP LUMBAR SPINE L1-L4: Total BMD is 1.280 g/cm2 T-score is 2.1 LEFT HIP: Total BMD is 0.867 g/cm2 T-score is -0.6 Femoral neck BMD is 0.733 g/cm2 T-score is -1.0 IMPRESSION: Normal. FRAX not reported due to all T-scores being at or above -1.0 REFERENCE: Bone mineral density: Normal (T-score above or = -1.0) Low bone mass (T-score between -1.0 and -2.5) replaces thepreviously used term osteopenia Osteoporosis (T-score = or below -2.5) Medical evaluation for secondary causes of low bone mineral density may be appropriate. FRAX is a World Health Organization validated fracture risk assessmenttool that calculates a person's 10 year probability of a major osteoporosisrelated fracture and hip fracture. According to the National OsteoporosisFoundation guidelines, postmenopausal women and men age 50 or older with low bonemass and a 10 year probability of a major osteoporosis related fracture = or greater than 20% or a 10 year probability of a hip fracture = or greaterthan 3% should be considered for treatment. For further information, including treatment recommendations, please referto the 2013 ISCD Official Positions (http://www.iscd.org) and the NOF's Clinician's Guide to Prevention and Treatment of Osteoporosis (http://www.nof.org/professionals/clinical-guidelines) THIS IS AN ELECTRONICALLY VERIFIED FINAL REPORT 07/13/2021 12:50 PM - Electronically signed by Michelle Tolentino M.D. TB: TB Report ID: [id number] Reading Location: [facility] Radha Guaman MD IM DXA [place] Final Result * Diabetic Eye Exam (06/14/2021) 06/14/2021 Historical Provider HEALTH MAINTENANCE Final Result from Last 3 Months or Most Recently Relevant to Health Maintenance Insurance IDPA IDPA MEDICARE [facility] Address: [address] [address] [place] [address] [facility] IDPA Advance Directives For more information, please contact: [phone] Documents on File Type Date Recorded Patient Alumni Relations Manager Expl anation ADVANCE DIRECTIVE 04/24/2024 5:57 PM POLST ADVANCE DIRECTIVE 04/17/2023 12:14 PM Bobby r of Workers' Compensation Claims Examiner-Medical ADVANCE DIRECTIVE 07/11/2022 9:31 PM POLST - Phys Order for PT Preferences * LIMITED - No CPR (Latest Code Status on File) Date Activated Date Inactivated Comments 04/09/2024 6:40 AM 04/21/2024 6:04 PM Question Answer Comments Provide aggressive medical m anagement before a full cardiopulmonary arrest occurs. Use antibiotics, IV Fluids, and medical treatment unless specifically selected below: No intubationNo cardioversionNo vasopressors Discussed with the following attending physician: Palak * Full Code Date Activated Date Inactivated Comments 04/07/2024 9:39 PM 04/09/2024 6:40 AM * LIMITED - No CPR Date Activated Date Inactivated Comments 10/13/2023 3:46 PM 10/16/2023 4:48 PM Question Answer Comments Provide aggressive medical m anagement before a full cardiopulmonary arrest occurs. Use antibiotics, IV Fluids, and medical treatment unless specifically selected below: No intubationNo non-invasive ventilationNo cardioversionNo internal / external pacemakerNo vasopressors * LIMITED - No CPR Date Activated Date Inactivated Comments 04/16/2022 1:31 AM 04/21/2022 9:01 PM * LIMITED - No CPR Date Activated Date Inactivated Comments 04/09/2022 11:31 PM 04/13/2022 7:44 PM Question Answer Comments Provide aggressive medical m anagement before a full cardiopulmonary arrest occurs. Use antibiotics, IV Fluids, and medical treatment unless specifically selected below: No intubationNo cardioversion Discussed with the following attending physician: Genie Kapadia [facility] Teams Load Out Supervisor Relationship Specialty Start Date End Date Radha Guaman MD PCP - General Internal Medicine 01/18/22
--- OUTSIDE RECORDS SUMMARY | 2025-08-10 18:18 | XMS_ITS | Patient Health Record ---
Author Organization [facility] Address [address] [place], [place] [id number] Care Team Providers Care Pilot Plant Operator Helper Name Role Phone [place] Unavailable [phone] Radha Guaman Unavailable Unavailable Reason For Referral No Information Medications Medication SIG (Take, Route, Frequency, Duration) Notes Start Date End Date Status Famotidine 40 MG Oral Tablet ORAL famotidine 40 MG Oral TabletOriginal Medicationfamotidine 40 MG Oral Tablet *Reorder from [facility] for eRx and Interaction Alerts* 2 Active Lisinopril 2.5 MG Oral Tablet ORAL lisinopril 2.5 MG Oral TabletOriginal Medicationlisinopril 2.5 MG Oral Tablet *Reorder from [facility] for eRx and Interaction Alerts* 2 Active Ibuprofen 200 MG Oral Capsule ORAL ibuprofen 200 MG Oral CapsuleOriginal Medicationibuprofen 200 MG Oral Capsule *Reorder from [facility] for eRx and Interaction Alerts* 2 Active acetaminophen 500 MG / hydrocodone bitartrate 5 MG Oral Tablet ORAL acetaminophen 500 MG / hydrocodone bitartrate 5 MG Oral TabletOriginal Medicationacetaminophen 500 MG / hydrocodone bitartrate 5 MG Oral Tablet *Reorder from [facility] for eRx and Interaction Alerts* 2 Active acetaminophen 325 MG / butalbital 50 MG / caffeine 40 MG Oral Tablet ORAL acetaminophen 325 MG / butalbital 50 MG / caffeine 40 MG Oral TabletOriginal Medicationacetaminophen 325 MG / butalbital 50 MG / caffeine 40 MG Oral Tablet *Reorder from [facility] for eRx and Interaction Alerts* 2 Active metoclopramide 10 MG Oral Tablet ORAL metoclopramide 10 MG Oral TabletOriginal Medicationmetoclopramide 10 MG Oral Tablet *Reorder from [facility] for eRx and Interaction Alerts* 2 Active buspirone hydrochloride 10 MG Oral Tablet ORAL buspirone hydrochloride 10 MG Oral TabletOriginal Medicationbuspirone hydrochloride 10 MG Oral Tablet *Reorder from [facility] for eRx and Interaction Alerts* 2 Active omeprazole 20 MG Delayed Release Oral Capsule ORAL omeprazole 20 MG Delayed Release Oral CapsuleOriginal Medicationomeprazole 20 MG Delayed Release Oral Capsule *Reorder from [facility] for eRx and Interaction Alerts* 2 Active Social History Social History Additional Details Category Social Info Options Details Migrated Social History Migrated Social History Smoking Status : Never used tobacco , History of tobacco use : Plan Of Treatment No Information Insurance Providers Payer Name Payer Address Payer Phone Subscriber Number Group Number Insured Name Patient Relationship to Insured Coverage Start Date Coverage End Date BPT, Actionality. [facility] [place] [address] [place] [address] [id number] HEIDI MAYS Self - patient is the insured
--- OUTSIDE RECORDS SUMMARY | 2025-08-10 18:19 | XMS_ITS | Clinical Summary ---
Author Organization [facility] Address [address] [place] [address] Care Team Providers Care Senior Accounting Analyst Name Role Phone Unavailable Primary Care Provider Unavailabl e Allergies Active Allergy Reactions Criticality Noted Date Comments Penicillins Rash Low 09/05/2023 Immunizations Immunization Administration Dates Next Due (COMRINATY)(12YR UP) COVID-1 9 VACCINE, MRNA (PF)30 MCG/0.3 ML, IM SYRINGE 09/05/2023 Social History Tobacco Use Types Packs/Day Years Used Date Smoking Tobacco: Never Assessed Comments Unknown Sex and Gender Information Value Date Recorded Sex Assigned at Not on file Legal 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 Gender Identity Not on file Sexual Orientation Not on file Plan of Treatment Health Maintenance Due Date Last Done Comments DTAP/TDAP/TD VACCINES (1 - Tdap) 1963 PNEUMOCOCCAL VACCINE 50+ YEARS (1 of 1 - PCV) 09/15/19 94 ZOSTER VACCINE (1 of 2) 1994 OSTEOPOROSIS SCREENING 2009 RSV VACCINE (60+ or ) (1 - 1-dose 75+ series) 2019 INFLUENZA VACCINE (#1) 2025 COVID-19 Vaccine (2 - 2024- season) 2025 Insurance RX MEDIMPACT Member Subscriber Plan / Payer (Ef fective 2023-Present) Name:Bere Roman Relation to Subscriber:Self Name:Bere Roman Subscriber ID:Not on file Payer ID:Not on file Group ID:[id number] Type:RX Medicare Part D Address: [address]
--- OUTSIDE RECORDS SUMMARY | 2025-08-10 18:19 | XMS_ITS | Patient Health Record ---
Author Organization [facility] Address [address] [place] [id number] Care Team Providers Care Lining Cementer Name Role Phone DR. LIDIA PAREKH Primary Care Provider [phone] Juanis Armstrong Unavailable [phone] Ginger Lopez Unavailable [phone] Allergies Allergen (clinical drug ingredient) Drug/Non Drug Allergy documented on EMR Reaction Allergy Type Onset Date Status Substance with penicillin structure and antibacterial mechanism of action (substance) Penicillins (uncoded) Unknown Allergy Active gabapentin Gabapentin Unknown Drug Allergy Activ e Results Component Value Reference Range Notes Lipid Panel Reviewed date:02/06/2025 09:55:50 AM Interpretation: Performing Lab: Notes/Report: Comp. Metabolic Panel (14) Reviewed date:02/06/2025 09:56:13 AM Interpretation: Performing Lab: Notes/Report: Urine Culture and Sensitivit y Reviewed date:02/06/2025 09:57:25 AM Interpretation: Performing Lab: Notes/Report: Levetiracetam, S Reviewed date:08/05/2025 05:28:25 PM Interpretation: Performing Lab: Notes/Report: TSH+Free T4 Reviewed date:08/05/2025 05:29:04 PM Interpretation: Performing Lab: Notes/Report: Reason For Referral No Information Medications Medication SIG (Take, Route, Frequency, Duration) Notes Start Date End Date Status Atorvastatin Calcium 10 MG Tablet 1 tablet Orally Once a day at bedtime Active Senna Plus 8.6-50 MG Tablet 1 tablet as needed Orally Twice a day Active Donepezil HCl 5 MG Tablet 1 tablet Orall y Once a day Active Acetaminophen 500 MG Tablet 2 tablets Or ally every 6 hrs Active oxyCODONE HCl 5 MG Tablet 0.5 tablet Orally four times a day As needed Active Aspirin 81 81 MG Tablet Chewable 1 tablet Orally Once a day Active Paxil 10 MG Tablet 1 tablet in the morn ing Orally Once a day Active Naloxone HCl 4 MG/0.1ML Liquid as directed Nasally Active Ondansetron 4 MG Tablet Disintegrating 1 tablet on the tongue and allow to dissolve Orally Once a day Active Lidocaine 4 % Patch 1 patch Externally O nce a day Active Melatonin 3 MG Tablet 1 tablet at bedtim e Orally Once a day Active I-Alberto - Tablet 1 tablet Orally once a day Active levETIRAcetam 250 MG Tablet 1 tablet Ora lly every 12 hrs Active Tylenol 8 Hour Arthritis Pain 650 MG Tablet Extended Release 1 tablet Orally every 8 hrs 05/19/2025 Active Lasix 20 MG Tablet 2 TABLETS Orally Once a day AND 1 TABLET ONCE DAILY Active Social History Tobacco Use: Social History Observation Description Date Details (start date - stop date) Former Smoker NA - NA Social History Drug/Alcohol: Social Info Question Answer Notes Drugs Have you used drugs other than those for medical reasons in the past 12 months? No AUDIT-C (Standard) Did you have a drink containing alcohol in the past year? 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) Active confirmed Problem Alzheimer's disease (43091583) Alzheimer's disease, unspecified (G30.9) Active confirmed Problem Chronic pain (14331100) Other chronic pain (G89.29) Active confirmed Problem Angina pectoris (507160329) Angina pectoris, unspecified (I20.9) Active confirmed Problem Lymphedema (291579734) Lymphedema, not elsewhere classified (I89.0) Active confirmed Problem Abarca's esophagus (845303885) Abarca's esophagus without dysplasia (K22.70) Active confirmed Problem Mixed hyperlipidemia (788350861) Mixed hyperlipidemia (E78.2) Active confirmed Problem Essential hypertension (34309216) Essential (primary) hypertension (I10) Active confirmed Problem Insomnia (608701519) Insomnia, unspecified type (G47.00) Active confirmed Problem Seizure (46082444) Seizure (R56.9) Active confirmed Problem Closed supracondylar fracture of femur (41558214) Closed supracondylar fracture of right femur, initial encounter (S72.451A) Active confirmed Vital Signs Heart Rate 71 /min 07/15/2025 Temperature 98.2 degrees Fahrenheit 06/19/2025 Respiratory Rate 16 /min 07/15/2025 Height-cm 157.48 cm 06/19/2025 Oximetry 97 % 07/15/2025 Blood pressure diastolic 60 mm Hg 07/15/2025 Weight-kg 77.57 kg 06/19/2025 Height 62 in 06/19/2025 Blood pressure systolic 108 mm Hg 07/15/2025 Weight 171 lbs 06/19/2025 BMI 31.27 kg/m2 06/19/2025 Encounters Encounter [place] [address] 08/22/2024 LIDIA PAREKH Essential (primary) hypertension I10 and Lower extremity edema R60.0 [place] [address] 09/16/2024 Ginger Lopez Type 2 diabetes mellitus with diabetic polyneuropathy E11.42 ; Alzheimer's disease, unspecified G30.9 ; Lymphedema, not elsewhere classified I89.0 ; Mixed hyperlipidemia E78.2 and Seizure R56.9 [place] [id number] 10/22/2024 LIDIA PAREKH Type 2 diabetes mellitus with diabetic polyneuropathy E11.42 and Essential (primary) hypertension I10 [place] [address] 11/28/2024 Ginger Lopez Type 2 diabetes mellitus with diabetic polyneuropathy E11.42 ; Alzheimer's disease, unspecified G30.9 ; Lymphedema, not elsewhere classified I89.0 ; Mixed hyperlipidemia E78.2 and Seizure R56.9 [place] [id number] 12/20/2024 LIDIA PAREKH Essential (primary) hypertension I10 and Lower extremity edema R60.[address] [address] 01/16/2025 Juanis Armstrong Type 2 diabetes mellitus with diabetic polyneuropathy E11.42 ; Alzheimer's disease, unspecified G30.9 ; Lymphedema, not elsewhere classified I89.0 ; Mixed hyperlipidemia E78.2 and Seizure R56.[address] [address] 02/19/[address] [address] 03/17/2025 Ginger Lopez Type 2 diabetes mellitus with diabetic polyneuropathy E11.42 ; Alzheimer's disease, unspecified G30.9 ; Lymphedema, not elsewhere classified I89.0 ; Mixed hyperlipidemia E78.2 and Seizure R56.[address] [address] 04/10/2025 [address]IA [address]KH [address] [address] 05/19/2025 Ginger Lopez Type 2 diabetes mellitus with diabetic polyneuropathy E11.42 ; Alzheimer's disease, unspecified G30.9 ; Lymphedema, not elsewhere classified I89.0 ; Mixed hyperlipidemia E78.2 ; Seizure R56.9 ; Pain in left shoulder M25.512 and Hypothyroidism, unspecified E03.[address] [address] 06/19/2025 [address]IA PAREKH [address] [address] 07/15/2025 Ginger Lopez Type 2 diabetes mellitus with diabetic polyneuropathy E11.42 ; Alzheimer's disease, unspecified G30.9 ; Lymphedema, not elsewhere classified I89.0 ; Mixed hyperlipidemia E78.2 ; Seizure R56.9 ; Pain in left shoulder M25.512 and Hypothyroidism, unspecified E03.[address] [address] 08/22/2024 LIDIA PAREKH [address] [address] 10/15/2024 LIDIA PAREKH [place] [id number] 01/15/2025 [facility] [address] [id number] 01/29/2025 LIDIA PAREKH [address] [address] 02/17/2025 LIDIA PAREKH [address] [address] 02/25/2025 LIDIA PAREKH [address] [address] 03/16/[address] [address] 04/01/2025 LIDIA PAREKH [address] [address] 04/10/2025 LIDIA PAREKH [address] [address] 05/03/2025 LIDIA PAREKH [address] [address] 05/18/2025 LIDIA PAREKH [address] [address] 05/31/2025 LIDIA PAREKH [address] [address] 06/19/2025 LIDIA PAREKH [address] [address] 06/26/2025 Ginger Lopez [address] [address] 07/14/2025 LIDIA PAREKH Assessments Encounter Date Diagnosis (ICD Code) Assessment Notes Treatment Notes Treatment Clinical Notes Section Notes 08/22/2024 Essential (primary) hypertension (ICD-10 - I10) 08/22/2024 Lower extremity edema (ICD-10 - R60.0) 09/16/2024 Type 2 diabetes mellitus with diabetic polyneuropathy (ICD-10 - E11.42) A1C on 07/18/24=6.2%. Not currently on medications. Continue to monitor. 09/16/2024 Alzheimer's disease, unspecified (ICD-10 - G30.9) A&Ox1, able to make needs known. Resides in the memory care unit. No behaviors are outburst reported by staff. Managed well with current medications. Continue current treatment plan and monitor. 11/28/2024 Type 2 diabetes mellitus with diabetic polyneuropathy (ICD-10 - E11.42) A1C on 07/18/24=6.2%. Not currently on medications. Continue to monitor. 12/20/2024 Essential (primary) hypertension (ICD-10 - I10) 12/20/2024 Lower extremity edema (ICD-10 - R60.0) 01/16/2025 Type 2 diabetes mellitus with diabetic polyneuropathy (ICD-10 - E11.42) A1C on 07/18/24=6.2%. Not currently on medications. Continue to monitor. 03/17/2025 Type 2 diabetes mellitus with diabetic polyneuropathy (ICD-10 - E11.42) A1C on 07/18/24=6.2%. Not currently on medications. Continue to monitor. 05/19/2025 Type 2 diabetes mellitus with diabetic polyneuropathy (ICD-10 - E11.42) A1C on 07/18/24=6.2%. Not currently on medications. Continue to monitor. 10/22/2024 Type 2 diabetes mellitus with diabetic polyneuropathy (ICD-10 - E11.42) 07/15/2025 Type 2 diabetes mellitus with diabetic polyneuropathy (ICD-10 - E11.42) A1C on 07/18/24=6.2%. Not currently on medications. Continue to monitor. 07/15/2025 Alzheimer's disease, unspecified (ICD-10 - G30.9) A&Ox1, pleasantly confused at baseline, able to make needs known. Resides in the memory care unit. No behaviors are outburst reported by staff. Managed well with current medications. Continue current treatment plan and monitor. 07/15/2025 Lymphedema, not elsewhere classified (ICD-10 - I89.0) Stable. nonpitting edema noted to bilateral lower extremities. Denies any concerns or issues at this time. Contine current treatment plan and monitor. 10/22/2024 Essential (primary) hypertension (ICD-10 - I10) 05/19/2025 Alzheimer's disease, unspecified (ICD-10 - G30.9) A&Ox1, pleasantly confused at baseline, able to make needs known. Resides in the memory care unit. No behaviors are outburst reported by staff. Managed well with current medications. Continue current treatment plan and monitor. 05/19/2025 Lymphedema, not elsewhere classified (ICD-10 - I89.0) Stable. nonpitting edema noted to bilateral lower extremities. Denies any concerns or issues at this time. Contine current treatment plan and monitor. 03/17/2025 Alzheimer's disease, unspecified (ICD-10 - G30.9) A&Ox1, pleasantly confused at baseline, able to make needs known. Resides in the memory care unit. No behaviors are outburst reported by staff. Managed well with current medications. Continue current treatment plan and monitor. 03/17/2025 Lymphedema, not elsewhere classified (ICD-10 - I89.0) Stable. nonpitting edema noted to bilateral lower extremities. Denies any concerns or issues at this time. Contine current treatment plan and monitor. 01/16/2025 Alzheimer's disease, unspecified (ICD-10 - G30.9) A&Ox1, able to make needs known. Resides in the memory care unit. No behaviors are outburst reported by staff. Managed well with current medications. Continue current treatment plan and monitor. 01/16/2025 Lymphedema, not elsewhere classified (ICD-10 - I89.0) Stable. 2+ pitting edema noted to bilateral lower extremities. Denies any concerns or issues at this time. Order to continue KARI bilateral extremities to decrease swelling and also to elevate bilateral extremities when sitting to help decrease swelling and also to use warm wash cloth to wipe her eyes to help and see if that relieves that funny feeling and continue to monitor. Otherwise, continue treatment as ordered. 11/28/2024 Alzheimer's disease, unspecified (ICD-10 - G30.9) A&Ox1, able to make needs known. Resides in the memory care unit. No behaviors are outburst reported by staff. Managed well with current medications. Continue current treatment plan and monitor. 09/16/2024 Lymphedema, not elsewhere classified (ICD-10 - I89.0) Stable. Non-pitting edema noted to bilateral lower extremities. Denies any concerns or issues at this time. Contine current treatment plan and monitor. 09/16/2024 Mixed hyperlipidemia (ICD-10 - E78.2) Last lipid panel 10/18/23 showed Trigylcerides 185 and HDL 50. Continue current treatment plan and monitor. Draw lipid panel on next lab day. 11/28/2024 Lymphedema, not elsewhere classified (ICD-10 - I89.0) Stable. 2+ pitting edema noted to bilateral lower extremities. Denies any concerns or issues at this time. Contine current treatment plan and monitor. 01/16/2025 Mixed hyperlipidemia (ICD-10 - E78.2) Last lipid panel 10/18/23 showed Trigylcerides 185 and HDL 50. Continue current treatment plan and monitor. 09/17/24- lipid panel HDL 40. Encourage heart heathly diet. 03/17/2025 Mixed hyperlipidemia (ICD-10 - E78.2) 01/26/25- lipid panel WNL. Well managed on current medication regimen. Continue with current treatment plan and monitoring. 05/19/2025 Mixed hyperlipidemia (ICD-10 - E78.2) 01/26/25- lipid panel WNL. Well managed on current medication regimen. Continue with current treatment plan and monitoring. 07/15/2025 Mixed hyperlipidemia (ICD-10 - E78.2) 01/26/25- lipid panel WNL. Well managed on current medication regimen. Continue with current treatment plan and monitoring. 07/15/2025 Seizure (ICD-10 - R56.9) Keppra level on 06/11/24 was WNL. No seizure activity noted. Dr. Milner's office is managing Keppra. Continue current treatment plan and monitor. Keppra level drawn on 05/20/2025 was low and at the time of order was given to ensure labs were sent to her neurologist. Unsure if that was done, we will follow-up with staff when in the facility. 05/19/2025 Seizure (ICD-10 - R56.9) Keppra level on 06/11/24 was WNL. No seizure activity noted. Dr. Milner's office is managing Keppra. Continue current treatment plan and monitor. 09/17/24- Keppra WNL. Draw Keppra level on next lab day. 03/17/2025 Seizure (ICD-10 - R56.9) Keppra level on 06/11/24 was WNL. No seizure activity noted. Dr. Milner's office is managing Keppra. Continue current treatment plan and monitor. 09/17/24- Keppra WNL. 01/16/2025 Seizure (ICD-10 - R56.9) Keppra level on 06/11/24 was WNL. No seizure activity noted. Dr. Milner's office is managing Keppra. Continue current treatment plan and monitor. 09/17/24- Keppra WNL. 11/28/2024 Mixed hyperlipidemia (ICD-10 - E78.2) Last lipid panel 10/18/23 showed Trigylcerides 185 and HDL 50. Continue current treatment plan and monitor. 09/17/24- lipid panel HDL 40. Encourage heart heathly diet. 09/16/2024 Seizure (ICD-10 - R56.9) Keppra level on 06/11/24 was WNL. No seizure activity noted. Dr. Milner's office is managing Keppra. Continue current treatment plan and monitor. Draw Keppra level on next lab day. 11/28/2024 Seizure (ICD-10 - R56.9) Keppra level on 06/11/24 was WNL. No seizure activity noted. Dr. Milner's office is managing Keppra. Continue current treatment plan and monitor. 09/17/24- Keppra WNL. 05/19/2025 Pain in left shoulder (ICD-10 - M25.512) Patient complains of left shoulder pain, nurse reports that the patient complains on and off with the left shoulder pain and reports that oxycodone that is ordered, does not help. New order given today for an ortho referral due to x-rays being negative and pain medication not helping. Also schedule Tylenol Arthritis q. 8 hours was also given as an order. 07/15/2025 Pain in left shoulder (ICD-10 - M25.512) Patient continues to have left shoulder pain due to arthritis. She uses Biofreeze per staff and that helps with the discomfort. Continue to monitor and update with any changes. 07/15/2025 Hypothyroidism, unspecified (ICD-10 - E03.9) On 05/20/2025, TSH was within normal limits. Managed well on current medications. Continue current treatment plan of monitoring. 05/19/2025 Hypothyroidism, unspecified (ICD-10 - E03.9) On 08/07/2024, TSH was within normal limits. Order given today to draw TSH and free T4 on next lab day. 09/16/2024 Other Continue curren t treatment plan.Staff to continue to monitor and report any changes.Patient education provided and questions/concern s addressed.Follow up in one month unless necessary sooner. 11/28/2024 Other Continue curren t treatment plan.Staff to continue to monitor and report any changes.Patient education provided and questions/concern s addressed.Follow up in one month unless necessary sooner.Please refer to facility EHR for current and accurate medication list and treatments. 01/16/2025 Other Continue current treatment plan. Staff to continue to monitor and report any changes. Patient education provided and questions/concern s addressed. Follow up in 2-4 weeks unless necessary sooner. 03/17/2025 Other Continue current treatment plan. Staff to continue to monitor and report any changes. Patient education provided and questions/concern s addressed. Follow up in 2-4 weeks unless necessary sooner. Reviewed HIPAA Right to Privacy Practices with patient/family/ca regiver. Draw CBC and Vit D level on next lab day. 05/19/2025 Other Continue current treatment plan. Staff to continue to monitor and report any changes. Patient education provided and questions/concern s addressed. Follow up in 2-4 weeks unless necessary sooner. 07/15/2025 Other Continue current treatment plan. Staff to continue to monitor and report any changes. Patient education provided and questions/concern s addressed. Follow up in 2-4 weeks unless necessary sooner. Plan Of Treatment No Information Insurance Providers Payer Name Payer Address Payer Phone Subscriber Number Group Number Insured Name Patient Relationship to Insured Coverage Start Date Coverage End Date [employer] of [place] [address] [facility], [place] [id number] [phone] [id number] Yayomonty Constanza Self - patient is the insured [employer] of [place] [address] [address] [place], [place] [id number] AugustusprashantAnais millanen Self - patient is the insured Medical (General) History Medical History History ICD Code Pain disorder exclusively related to psy chological factors F45.41 Angina pectoris, unspecified I20.9 Urinary tract infection, site not specif ied N39.0 Other specified endocrine disorders E34. 8 Essential (primary) hypertension I10 Unspecified fall, subsequent encounter W 19.XXXD Abarca's esophagus without dysplasia K2 2.70 Disorientation, unspecified R41.0 Type 2 diabetes mellitus with diabetic p olyneuropathy E11.42 General weakness R53.1 Lymphedema, not elsewhere classified I89 .0 Mixed hyperlipidemia E78.2 Urinary tract infection, site not specif ied N39.0 Vascular dementia, mild, wit hout behavioral disturbance, psychotic disturbance, mood disturbance, and anxiety F01.A0 Alzheimer's disease, unspecified G30.9 Surgical History Surgery Date(Month/Year) breast biopsy
--- OUTSIDE RECORDS SUMMARY | 2025-08-10 18:19 | XMS_ITS | Clinical Summary ---
Author Organization [facility] Address [address] [place] [id number] Care Team Providers Care Transaction Manager Name Role Phone Radha Guaman MD Primary Care Provider [phone] Allergies Active Allergy Reactions Criticality Noted Date Comments Penicillins Hives Medium 05/10/2012 Hives Social History Tobacco Use Types Packs/Day Years Used Date Smoking Tobacco: Never Smokeless Tobacco: Never Tobacco Cessation:Counseling Given: Not Answered Alcohol Use Standard Drinks/Week Comments Never 0 (1 standard drink = 0.6 oz pur e alcohol) Comments No Sex and Gender Information Value Date Recorded Sex Assigned at Not on file Legal Sex Female 4:07 PM CDT Gender Identity Not on file Sexual Orientation Not on file Last Filed Vital Signs Vital Sign Reading Time Taken Comments Blood Pressure 161/83 03/14/2024 12:49 AM CDT Pulse 82 03/14/2024 12:49 AM CDT Temperature 36.2 C (97.1 F) 03/14/2024 12:49 AM CDT Respiratory Rate 18 03/14/2024 12:49 AM CDT Oxygen Saturation 100% 03/14/2024 12:49 AM CDT Inhaled Oxygen Concentration - - Weight 90.7 kg (200 lb) 03/14/2024 12:49 AM CDT Height 162.6 cm (5' 4) 03/14/2024 12:49 AM CDT Body Mass Index 34.33 03/14/2024 12:49 AM CDT Plan of Treatment Health Maintenance Due Date Last Done Comments DTaP, Tdap and Td Vaccines (1 - Tdap) 1964 Annual Medicare Wellness Visit 2009 Zoster Vaccines (2 of 3) 09/16/2015 07/22/2015 RSV Immunization or 60+ Years (1 - 1-dose 75+ series) 2019 COVID-19 Vaccine (4 - season) 2025 07/29/2021, 01/10/2021, 12/13/2020 Influenza Adult (#1) 2025 07/01/2020, 08/01/2019, 08/06/2018, Additional history exists Pneumococcal Vaccine: 50+ Years Completed 11/13/2016, 11/11/2014 Dexa Scan (General) Completed 07/13/2021 Hepatitis A Vaccines Aged Out No long er eligible based on patient's age to complete this topic Meningococcal B Vaccine Aged Out No l onger eligible based on patient's age to complete this topic Meningococcal Vaccine Aged Out No kale jorge l eligible based on patient's age to complete this topic RSV Immunizations Under 20 Months Aged Out No longer eligible based on patient's age to complete this topic Insurance MEDICAID [facility] Care Teams Transaction Manager Relationship Specialty Start Date End Date Radha Guaman MD [address] [place] [id number] PCP - General INTERNAL MEDICINE 04/11/23
--- NOTE | 2025-08-10 18:31 | ED_ITS ---
HPI - Fall General Chief Complaint: Fall Stated Complaint: fall Time Seen by Provider: 08/10/25 17:29 Source: patient and EMS Mode of arrival: EMS Limitations: dementia History of Present Illness HPI Narrative: This is a 79 year old female that presents to the ER after a fall today with head injury. Reports she tripped in the bathroom and fell and hit her head. Reports right shoulder pain, back pain. Related Data Home Medications ?Medication ?Instructions ?Recorded ?Confirmed ?Last Taken ?Type atorvastatin 10 mg tablet (Lipitor) 10 mg PO HS 08/06/24 Unknown History Allergies Allergy/AdvReac Type Severity Reaction Status Date / Time penicillin V Allergy Unknown Unknown Verified 06/04/22 15:06 Review of Systems Review of Systems: All systems reviewed & are unremarkable except as noted in HPI and below PMFSH Past Medical History Medical History Anxiety Atherosclerosis of aorta Barretts esophagus CKD (chronic kidney disease) Depression GERD (gastroesophageal reflux disease) Hyperlipidemia Hypo-osmolality and hyponatremia Migraines Pre-diabetes Surgical History Surgical History History of esophagogastroduodenoscopy (EGD) Family History Family History Other Diabetes mellitus Family history of arthritis Family history of cardiovascular disease Hypertension Social History Social History Social History: Lives at [facility] Nursing Code: DNR POA: Charlie (brother), Chandrika (sister) PCP: Dr. Radha Guaman Smoking status: Former smoker Additional smoking assessment comments: Unknown amount or duration of smoking, quit 40-50 years ago Substance use: never Substance use type: does not use Spiritual care concerns: No Exam Narrative: GENERAL: Elderly, well-nourished, and in no acute distress. HEAD: Normocephalic, atraumatic. EYES: PERRLA and EOMI. ENT: Nares clear, no rhinorrhea or epistaxis. Mucous membranes moist. Oropharynx without tonsillar hypertrophy exudate or other lesions. Bilateral TMs pearly levin non-bulging NECK: Supple. No adenopathy or masses. CHEST: Clear to auscultation. No respiratory distress. No wheezes rales or rhonchi HEART: Regular rate and rhythm. No murmur heard. Normal peripheral pulses. EXTREMITIES: Normal range of motion. No edema or obvious deformity. SKIN: Warm, dry, no rash. NEURO: No focal deficits. Alert and oriented x2. CN II-XII grossly intact PSYCH: Normal mood and affect Course Vital Signs Vital signs: Vital Signs Temperature 98.1 F 08/10/25 17:17 Pulse Rate 96 08/10/25 17:17 Respiratory Rate 18 08/10/25 17:17 Blood Pressure 167/83 H 08/10/25 17:17 Pulse Oximetry 98 08/10/25 17:17 Oxygen Delivery Room Air 08/10/25 17:17 Temperature 98.1 F 08/10/25 17:17 Pulse Rate 71 08/10/25 18:00 Respiratory Rate 17 08/10/25 18:00 Blood Pressure 133/66 08/10/25 18:00 Pulse Oximetry 98 08/10/25 18:00 Oxygen Delivery Room Air 08/10/25 17:17 MDM - Fall MDM Narrative Medical decision making narrative: Patient presents to the emergency department after a ground level fall at her facility with head injury. Her vitals are stable. She is neurologically intact at baseline. CT brain, cervical spine, thoracic/lumbar spine without acute findings. Chest x-ray and pelvic x-ray without acute findings. Right shoulder x-ray without acute abnormality. Patient updated, stable for discharge back to facility Imaging Data Radiologist's impression: ITS Impressions Head CT 08/10/25 18:18 IMPRESSION: 1. No acute intracranial abnormality. Cervical Spine CT 08/10/25 18:21 IMPRESSION: 1. No acute abnormality of the cervical spine. 2: Severe cervical spondylosis. Thoracic/Lumbar Spine CT 08/10/25 19:13 IMPRESSION: 1. No acute abnormality of the thoracic or lumbar spine. 2: Moderate-severe multilevel degenerative spondylosis of the thoracic and lumbar spine. Chest X-Ray 08/10/25 19:24 IMPRESSION: 1: NO ACUTE CARDIOPULMONARY DISEASE. Pelvis X-Ray 08/10/25 19:25 Impression: 1: No acute fracture. Shoulder X-Ray 08/10/25 19:32 Impression: 1: No acute fracture. Critical Care Time Critical Care Time Critical Care Time: No Discharge Plan Discharge Clinical Impression: Fall, Head injury Patient Disposition: Home Condition: Stable Instructions: Head Injury (ED) Additional Instructions: Return to the emergency department if you experience fever, chest pain, shortness of breath, abdominal pain with nausea and vomiting, weakness, numbness, or any other symptoms that are concerning to you. Rest. Ice to the area. Over the counter pain medication as needed Follow up with primary care doctor Patient Language: Citizen Of [place] Prescriptions: No Action atorvastatin [Lipitor] 10 mg tablet 10 mg PO HS acetaminophen [Mapap (acetaminophen)] 325 mg Tablet 650 mg PO Q4H PRN (Reason: Mild Pain (1-3) Or Fever) Qty: 10 0RF cefdinir 300 mg Capsule 300 mg PO Q12HR Qty: 1 0RF lidocaine [Lidoderm] 5 % Adhesive Patch,Medicated 1 patch transdermal DAILY Qty: 7 0RF Rx Instructions: Place patch on clean skin for 12 hours, remove after 12 hours to prevent tolerance. sodium chloride 1 gram Tablet 1 g PO BID Qty: 14 0RF furosemide 20 mg tablet 10 mg PO BID Qty: 14 0RF oxycodone 5 mg tablet 5 mg PO QID Qty: 120 0RF Follow-up/Referrals: Deniz,Radha Alicea MD [Primary Care Provider, Internal Medicine] Stand Alone Forms: Group Home Discharge
[2025-08-10] MEDS: ACETAMINOPHEN 500 MG TABLET 1000 MG PO (18:37)
[2025-08-10 20:44] VITALS: BP 130/86; PULSE 86; RESP 18; O2SAT 95
== END 2025-08-10 20:45 ==
PROVIDERS: Emergency Provider Physician Assistant; PCP Internal Medicine
DX: S09.90XA Unspecified injury of head, initial encounter (principal); M47.813 Spondylosis without myelopathy or radiculopathy, cervicothoracic region; M47.817 Spondylosis without myelopathy or radiculopathy, lumbosacral region; F41.9 Anxiety disorder, unspecified; N18.9 Chronic kidney disease, unspecified; F32.A Depression, unspecified; K21.9 Gastro-esophageal reflux disease without esophagitis; E78.5 Hyperlipidemia, unspecified; W01.0XXA Fall on same level from slipping, tripping and stumbling without subsequent striking against object, initial encounter
CPT/HCPCS: 70450; 71045; 72125; 72128; 72131; 72170; 73030; 99284; A9270